=== PATIENT | female | born 2000 | race Caucasian/White ===

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

== ENCOUNTER 2019-01-15 08:24 | Emergency (ER) | payer MEDICAID ==
[2019-01-15 09:01] LABS: BASOPHILS % (AUTO) 0.7 %; EOSINOPHILS # (AUTO) 0.1 10^3/uL (0.0-0.7); EOSINOPHILS % (AUTO) 2.1 %; LYMPHOCYTES # (AUTO) 1.4 10^3/uL (1.5-3.5); LYMPHOCYTES % (AUTO) 22.3 %; MEAN CORPUSCULAR HGB CONC 31.5 g/dL (32.0-36.0); MEAN PLATELET VOLUME 9.3 fL (7.9-10.8); MONOCYTES # (AUTO) 0.4 10^3/uL (0.0-1.0); MONOCYTES % (AUTO) 6.9 %; NEUTROPHILS # (AUTO) 4.2 10^3/uL (1.5-6.6); NEUTROPHILS % (AUTO) 67.8 %; PLT - PLATELET COUNT 312 10^3/uL (130-450); RED BLOOD COUNT 4.64 10^6/uL (4.20-5.40); RED CELL DISTRIBUTION WIDTH 16.3 % (12.0-15.0); WHITE BLOOD COUNT 6.1 x10^3/uL (4.8-10.8)
[2019-01-15 09:24] LABS: ALBUMIN 4.6 g/dL (3.2-5.5); ALBUMIN/GLOBULIN RATIO 1.3 (1.0-2.2); BILIRUBIN,TOTAL 0.8 mg/dL (0.2-1.0); CALCIUM 9.5 mg/dL (8.5-10.3); CREATININE 0.6 mg/dL (0.4-1.0); TOTAL PROTEIN 8.1 g/dL (6.7-8.2)
[2019-01-15 10:06] LABS: BILIRUBIN,URINE NEGATIVE (NEGATIVE); GLUCOSE, URINE (UA) NEGATIVE (NEGATIVE); KETONES,URINE (UA) NEGATIVE (NEGATIVE); LEUKOCYTE ESTERASE, URINE SMALL (NEGATIVE); NITRITE,URINE NEGATIVE (NEGATIVE); OCCULT BLOOD,URINE MODERATE (NEGATIVE); PH,URINE 7.5 PH (5.0-7.5); PROTEIN,URINE 100 mg/dL (NEGATIVE); UROBILINOGEN,URINE 0.2 (NORMAL) E.U./dL (NORMAL)
[2019-01-15 10:07] LABS: CLARITY,URINE SL. CLOUDY (CLEAR)
[2019-01-15 10:08] LABS: HCG UR QUAL NEGATIVE
[2019-01-15 10:11] LABS: BACTERIA,URINE Moderate /HPF (None Seen); SQUAMOUS EPITHELIAL CELL,UR MOD Squamous (<= Few)
--- NOTE | 2019-01-15 11:08 | ED Physician Documentation ---
PD HPI FEMALE - Stated complaint Stated Complaint: ABD PX - Chief complaint Chief Complaint: Abd Pain - History obtained from History obtained from: Patient - History of Present Illness Timing - onset: How many days ago (2) Timing - duration: Days (2) Timing - details: Gradual onset, Still present Associated symptoms: Back pain, Pelvic pain, Dysuria, Urinary frequency Contributing factors: No: Similar symptoms before: Has not had sx before Recently seen: Not recently seen - Additional information Additional information: Previously well 18-year-old female has developed some lower abdomen cramping and pain as well as some urinary urgency and frequency. She has not developed fever she has not developed nausea she been able to eat. Review of Systems Constitutional: denies: Fever Eyes: denies: Decreased vision Ears: denies: Ear pain Nose: denies: Rhinorrhea / runny nose, Congestion Throat: denies: Sore throat Cardiac: denies: Chest pain / pressure, Palpitations Respiratory: denies: Dyspnea, Cough GI: reports: Abdominal Pain. denies: Nausea, Vomiting, Constipation, Diarrhea : reports: Dysuria, Frequency. denies: Discharge Skin: denies: Rash Musculoskeletal: reports: Back pain. denies: Neck pain, Extremity pain Neurologic: denies: Generalized weakness, Focal weakness, Numbness PD PAST MEDICAL HISTORY - Past Surgical History Ortho: Other (foot surgery) - Present Medications Home Medications: Ambulatory Orders Medication Instructions Recorded Confirmed Sulfamethox/Trimeth 800/160 1 each PO BID #10 tablet 01/15/19 [Bactrim Ds] - Allergies Allergies/Adverse Reactions: Allergies Allergy/AdvReac Type Severity Reaction Status Date / Time No Known Drug Allergies Allergy Verified 01/15/19 08:41 - Social History Smoking Status: Never smoker PD ED PE NORMAL - Vitals Vital signs reviewed: Yes (normal ) - General General: Alert and oriented X 3, No acute distress, Well developed/nourished - HEENT HEENT: Atraumatic, PERRL, EOMI - Neck Neck: Supple, no meningeal sign - Cardiac Cardiac: RRR, No murmur - Respiratory Respiratory: No respiratory distress, Clear bilaterally - Abdomen Abdomen: Soft, Other (There is migratory tenderness to the upper and lower abdomen. There is right upper quadrant tendernes as well a suprapubic tenderness and right lower quadrant tenderness that is not reproducible. 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, No motor deficit, No sensory deficit, Normal speech Eye Opening: Spontaneous Motor: Obeys Commands Verbal: Oriented GCS Score: 15 - Psych Psych: Normal mood, Normal affect Results - Vitals Vitals: Vital Signs - 24 hr 01/15/19 08:39 Temperature 36.8 C Heart Rate 70 Respiratory 14 Rate Blood Pressure 129/76 O2 Saturation 100 Oxygen O2 Source Room air - Labs Labs: Laboratory Tests 01/15/19 01/15/19 01/15/19 08:50 08:50 09:50 WBC 6.1 RBC 4.64 Hgb 13.0 Hct 41.3 MCV 89.0 MCH 28.0 MCHC 31.5 L RDW 16.3 H Plt Count 312 MPV 9.3 Neut # (Auto) 4.2 Lymph # (Auto) 1.4 L [place] # (Auto) 0.4 Eos # (Auto) 0.1 Baso # (Auto) 0.0 Absolute Nucleated RBC 0.00 Nucleated RBC % 0.0 Sodium 140 Potassium 4.4 Chloride 105 Carbon Dioxide 26 Anion Gap 9.0 BUN 17 Creatinine 0.6 Estimated GFR (MDRD) 129 Glucose 110 H Calcium 9.5 Total Bilirubin 0.8 AST 17 ALT 19 Alkaline Phosphatase 43 Total Protein 8.1 Albumin 4.6 Globulin 3.5 Albumin/Globulin Ratio 1.3 Lipase 29 Urine Color YELLOW Urine Clarity SL. CLOUDY Urine pH 7.5 Ur Specific [place] 1.020 Urine Protein 100 H Urine Glucose (UA) NEGATIVE Urine Ketones NEGATIVE Urine Occult Blood MODERATE H Urine Nitrite NEGATIVE Urine Bilirubin NEGATIVE Urine Urobilinogen 0.2 (NORMAL) Ur Leukocyte Esterase SMALL H Urine RBC 11-25 H Urine WBC 11-25 H Ur Squamous Epith Cells MOD Squamous H Urine Bacteria Moderate H Ur Microscopic Review INDICATED Urine Culture Comments NOT INDICATED Urine HCG, Qual 01/15/19 09:50 WBC RBC Hgb Hct MCV MCH MCHC RDW Plt Count MPV Neut # (Auto) Lymph # (Auto) [place] # (Auto) Eos # (Auto) Baso # (Auto) Absolute Nucleated RBC Nucleated RBC % Sodium Potassium Chloride Carbon Dioxide Anion Gap BUN Creatinine Estimated GFR (MDRD) Glucose Calcium Total Bilirubin AST ALT Alkaline Phosphatase Total Protein Albumin Globulin Albumin/Globulin Ratio Lipase Urine Color Urine Clarity Urine pH Ur Specific [place] 1.020 Urine Protein Urine Glucose (UA) Urine Ketones Urine Occult Blood Urine Nitrite Urine Bilirubin Urine Urobilinogen Ur Leukocyte Esterase Urine RBC Urine WBC Ur Squamous Epith Cells Urine Bacteria Ur Microscopic Review Urine Culture Comments Urine HCG, Qual NEGATIVE PD MEDICAL DECISION MAKING - ED course Complexity details: reviewed results, re-evaluated patient, considered differential, d/w patient ED course: 18-year-old female with lower pelvic pain appears to have urinary tract infection. Departure - Departure Disposition: 01 Home, Self Care Clinical Impression: Urinary tract infection Qualifiers: Urinary tract infection type: acute cystitis Hematuria presence: with hematuria Qualified Code(s): N30.01 - Acute cystitis with hematuria Condition: Stable Instructions: ED UTI Cystitis Female Follow-Up: [facility] [Provider Group] Prescriptions: Sulfamethox/Trimeth 800/160 [Bactrim Ds] 1 each PO BID #10 tablet
[2019-01-15 11:30] VITALS: BP 113/81
== END 2019-01-15 11:29 | disposition home or self-care (01) ==
LOC: ED 08:24
DX: N30.01 Acute cystitis with hematuria (principal)
CPT/HCPCS: 36415; 80053; 81001; 81003; 81025; 83690; 85025; 87086; 99283; 99284

== ENCOUNTER 2019-10-31 08:26 | Outpatient (CLI) | payer MEDICAID | END 2019-10-31 23:59 | disposition home or self-care (01) | LOC: LAB.R 08:26 | PROVIDERS: ATTEND Obstetrics & Gynecology | DX: R30.0 Dysuria (principal) | CPT/HCPCS: 87086 ==

== ENCOUNTER 2020-01-17 07:00 | Outpatient (CLI) | payer MEDICAID ==
[2020-01-17 22:56] LABS: CANDIDA GROUP DNA NEGATIVE (NEGATIVE); CANDIDA KRUSEI DNA NEGATIVE (NEGATIVE); TRICHOMONAS VAGINALIS DNA NEGATIVE (NEGATIVE)
== END 2020-01-17 23:59 | disposition home or self-care (01) ==
LOC: LAB.R 07:00
PROVIDERS: ATTEND Advanced Practice Midwife
DX: N39.0 Urinary tract infection, site not specified (principal); R10.2 Pelvic and perineal pain
CPT/HCPCS: 87086; 87661; 87801

== ENCOUNTER 2020-02-19 12:30 | Outpatient (CLI) | payer MEDICAID ==
[2020-02-19 20:03] LABS: RAPID STREP SCREEN Negative (Negative)
== END 2020-02-19 23:59 | disposition home or self-care (01) ==
LOC: LAB.R 12:30
PROVIDERS: ATTEND Nurse Practitioner
DX: R05 Cough (principal); Z20.828 Contact with and (suspected) exposure to other viral communicable diseases
CPT/HCPCS: 87070; 87275; 87276; 87430

== ENCOUNTER 2021-06-12 08:00 | Outpatient (CLI) | payer MEDICAID ==
[2021-06-12 17:25] LABS: BILIRUBIN,URINE NEGATIVE (NEGATIVE); GLUCOSE, URINE (UA) NEGATIVE (NEGATIVE); KETONES,URINE (UA) NEGATIVE (NEGATIVE); LEUKOCYTE ESTERASE, URINE TRACE (NEGATIVE); NITRITE,URINE NEGATIVE (NEGATIVE); OCCULT BLOOD,URINE SMALL (NEGATIVE); PROTEIN,URINE NEGATIVE (NEGATIVE); UROBILINOGEN,URINE 0.2 (NORMAL) E.U./dL (NORMAL)
[2021-06-12 17:28] LABS: CLARITY,URINE SL. CLOUDY (CLEAR)
[2021-06-12 17:40] LABS: BACTERIA,URINE Moderate /HPF (None Seen); RBC,URINE 0-5 /HPF (0-5); SQUAMOUS EPITHELIAL CELL,UR MOD Squamous (<= Few)
[2021-06-12 17:41] LABS: MUCUS,URINE Few Strands
[2021-06-12 21:52] LABS: BACTERIAL VAGINOSIS DNA NEGATIVE (NEGATIVE); CANDIDA GLABRATA DNA NEGATIVE (NEGATIVE); CANDIDA GROUP DNA NEGATIVE (NEGATIVE); CANDIDA KRUSEI DNA NEGATIVE (NEGATIVE); TRICHOMONAS VAGINALIS DNA NEGATIVE (NEGATIVE)
[2021-06-12 22:32] LABS: CHLAMYDIA TRACHOMATIS DNA NEGATIVE (NEGATIVE); NEISSERIA GONORRHOEAE DNA NEGATIVE (NEGATIVE); TRICHOMONAS VAGINALIS DNA NEGATIVE (NEGATIVE)
== END 2021-06-12 23:59 | disposition home or self-care (01) ==
LOC: LAB.WC 08:00
PROVIDERS: ATTEND Obstetrics & Gynecology
DX: R30.0 Dysuria (principal); N89.8 Other specified noninflammatory disorders of vagina
CPT/HCPCS: 81001; 87086; 87491; 87591; 87661; 87801

== ENCOUNTER 2021-06-16 08:00 | Outpatient (CLI) | payer MEDICAID | END 2021-06-16 23:59 | LOC: LAB.WC 08:00 | PROVIDERS: ATTEND Obstetrics & Gynecology | DX: R30.0 Dysuria (principal) | CPT/HCPCS: 87086; 87181 ==

== ENCOUNTER 2021-06-26 08:00 | Outpatient (CLI) | payer MEDICAID ==
[2021-06-26 19:36] LABS: BACTERIAL VAGINOSIS DNA NEGATIVE (NEGATIVE); CANDIDA GLABRATA DNA NEGATIVE (NEGATIVE); CANDIDA GROUP DNA POSITIVE (NEGATIVE); CANDIDA KRUSEI DNA NEGATIVE (NEGATIVE); TRICHOMONAS VAGINALIS DNA NEGATIVE (NEGATIVE)
== END 2021-06-26 23:59 | disposition home or self-care (01) ==
LOC: LAB 08:00
PROVIDERS: ATTEND Obstetrics & Gynecology
DX: L29.8 Other pruritus (principal); B96.20 Unspecified Escherichia coli [E. coli] as the cause of diseases classified elsewhere
CPT/HCPCS: 81514; 87086

== ENCOUNTER 2021-09-13 14:56 | Emergency (ER) | payer MEDICAID ==
[2021-09-13 15:04] VITALS: BP 122/72
[2021-09-13] MEDS ORDERED: BACITRACIN ZINC OINT 1 PACKET TOP STA (16:51)
--- NOTE | 2021-09-13 16:52 | ED Physician Documentation ---
History of Present Illness - Stated complaint Stated Complaint: LT PINKY NAIL INJ - Chief complaint Chief Complaint: Wound - Additonal information Additional information: 21-year-old female presents emergency department for evaluation of acute left nailbed injury. She wears acrylic nails on top of her [place] nail. Yesterday the acrylic got pulled and it lifted the [place] nail away from the nailbed. She and her friend used superglue to Replace the nail back on the bed but now the finger is swollen has mucopurulent drainage and is increasingly painful. Review of Systems Constitutional: denies: Fever, Chills Throat: reports: Reviewed and negative Cardiac: reports: Reviewed and negative Respiratory: reports: Reviewed and negative GI: reports: Reviewed and negative : reports: Reviewed and negative Skin: reports: Reviewed and negative Musculoskeletal: reports: Reviewed and negative PD PAST MEDICAL HISTORY - Past Surgical History Ortho: Other (foot surgery) - Present Medications Home Medications: Ambulatory Orders Medication Instructions Recorded Confirmed Sulfamethox/Trimeth 800/160 1 each PO BID #10 tablet 01/15/19 [Bactrim Ds] cephALEXin [Keflex] 500 mg PO Q6H #28 cap 09/13/21 - Allergies Allergies/Adverse Reactions: Allergies Allergy/AdvReac Type Severity Reaction Status Date / Time No Known Drug Allergies Allergy Verified 09/13/21 15:05 - Social History Smoking Status: Never smoker PD ED PE EXPANDED - Extremities Extremities: Left finger(s) (Left small finger with swelling ecchymosis induration at the distal tip and fat pad. Large amount of mucopurulent drainage from under the [place] nailbed) Results - Vitals Vitals: Vital Signs - 24 hr 09/13/21 15:00 Temperature 36.1 C L Heart Rate 83 Respiratory 16 Rate Blood Pressure 122/72 O2 Saturation 100 Oxygen O2 Source Room air Procedures - General procedure General procedure: Left small finger was anesthetized with 1% lidocaine using a digital block. Once anesthesia was appropriately achieved. Using a nail elevator we were able to remove the acrylic nail. The [place] nail appears adherent to the Nailbed. Moderate amount of mucopurulent drainage received PD MEDICAL DECISION MAKING - ED course Complexity details: considered differential, d/w patient ED course: 21-year-old female presents emergency department with a left small distal finger infection after an acrylic nail bed was ripped away from the [place] nail and it was glued down while rafting. She now has mucopurulent drainage. I did achieve a digital block of this digit and using a nail elevator is able to remove the acrylic nail from the [place] bed. Moderate amount of mucopurulent drainage came. She will placed on Keflex. Warm compress as well as salt water soaks advised. Emergent return precautions discussed. Her tetanus is up-to-d ate Departure - Departure Disposition: 01 Home, Self Care Clinical Impression: Nail avulsion Cellulitis, finger Qualifiers: Laterality: left Qualified Code(s): L03.012 - Cellulitis of left finger Condition: Stable Record reviewed to determine appropriate education?: Yes Prescriptions: cephALEXin [Keflex] 500 mg PO Q6H #28 cap Comments: Samira you sustained what is called a nail avulsion which is where a portion of the nail lifted from the nail bed. You do have an infection of the finger called cellulitis. We did remove the acrylic nail and your [place] nail seems adherent to the nailbed at this time. I would like you to soak your finger in warm Epson salt once daily and then apply antibiotic ointment to your nailbed and a simple bandage. Fill the prescription for the antibiotics and take as directed. I will expect that this is markedly improving over the next 4 to 6 days. If her symptoms or not improving, you develop fevers, have significant swelling then please return to the ER for second evaluation
[2021-09-13] MEDS ORDERED: cephALEXin 250 MG CAPSULE PO STA (17:34)
== END 2021-09-13 17:43 | disposition home or self-care (01) ==
LOC: ED 14:56
DX: S61.307A Unspecified open wound of left little finger with damage to nail, initial encounter (principal); X58.XXXA Exposure to other specified factors, initial encounter
CPT/HCPCS: 64450; 99282; A9270

== ENCOUNTER 2021-12-30 11:22 | Emergency (ER) | payer MEDICAID ==
[2021-12-30 11:33] VITALS: BP 126/71
--- OUTSIDE RECORDS SUMMARY | 2021-12-30 11:41 | EXTERNAL MEDICAL SUMMARY RPT | Continuity of Care Document ---
:2000 Author Organization [facility] Address [address] [place] [address] Phone Allergies and Intolerances date description facility type (no date) No Known Drug Allergies [facility] (unkn own) Encounters No information. Functional Status No information. Immunizations No information. Medications No information. Problems No information. Procedures No information. Results/Labs test date author facility value unit interpret ation Result panel 1 (unknown) (no (unknown) (unknown) (no value) (units (unk nown) date) unknown) (unknown) (no (unknown) (unknown) Date of Service: (units (unknown) date) 10/28/21 unknown) (unknown) (no (unknown) (unknown) (no value) (units (unk nown) date) unknown) (unknown) (no (unknown) (unknown) Allergies (units (unkn own) date) unknown) (unknown) (no (unknown) (unknown) Emergency Report (units (unknown) date) unknown) (unknown) (no (unknown) (unknown) [facility] (units (unknown) date) [address] [place] [address] unknown) [place] [address] (unknown) (no (unknown) (unknown) Vital Signs - 8 (units (unknown) date) hr unknown) (unknown) (no (unknown) (unknown) (no value) (units (unk nown) date) unknown) (unknown) (no (unknown) (unknown) 10/28/21 (units (unkno wn) date) unknown) (unknown) (no (unknown) (unknown) [id number] (units (unkno wn) date) unknown) (unknown) (no (unknown) (unknown) 09:08 (units (unkno wn) date) unknown) (unknown) (no (unknown) (unknown) Age/Sex: 21 / F (units (unknown) date) unknown) (unknown) (no (unknown) (unknown) Allergy/AdvReac (units (unknown) date) Type Severity unknown) Reaction Status Date / Time (unknown) (no (unknown) (unknown) Blood Pressure (units (unknown) date) 144/89 H 10/28/21 unknown) 09:08 (unknown) (no (unknown) (unknown) Blood Pressure (units (unknown) date) 144/89 H unknown) (unknown) (no (unknown) (unknown) Chief complaint: (units (unknown) date) Urogenital-Female unknown) (unknown) (no (unknown) (unknown) Course (units (unkno wn) date) unknown) (unknown) (no (unknown) (unknown) : 2000 (units (unknown) date) Acct:[id number] unknown) (unknown) (no (unknown) (unknown) Departure (units (unkn own) date) unknown) (unknown) (no (unknown) (unknown) Discharge Plan (units (unknown) date) unknown) (unknown) (no (unknown) (unknown) ER Physician: (units ( unknown) date) Keiry Candelaria unknown) D.O. (unknown) (no (unknown) (unknown) Exam (units (unkno wn) date) unknown) (unknown) (no (unknown) (unknown) General (units (unkno wn) date) unknown) (unknown) (no (unknown) (unknown) HPI - Female (units (u nknown) date) Genitourinary unknown) (unknown) (no (unknown) (unknown) Initial Vital (units ( unknown) date) Signs unknown) (unknown) (no (unknown) (unknown) Initial Vital (units ( unknown) date) Signs: unknown) (unknown) (no (unknown) (unknown) Mode of arrival: (units (unknown) date) Wheelchair unknown) (unknown) (no (unknown) (unknown) No Known Drug (units ( unknown) date) Allergies Allergy unknown) Verified 10/28/21 09:14 (unknown) (no (unknown) (unknown) Oxygen Delivery (units (unknown) date) Method 10/28/21 unknown) 09:08 (unknown) (no (unknown) (unknown) Oxygen Delivery (units (unknown) date) Method Room Air unknown) (unknown) (no (unknown) (unknown) Patient History (units (unknown) date) unknown) (unknown) (no (unknown) (unknown) Patient: (units (unkno wn) date) Samira Velázquez unknown) MR#: [id number] (unknown) (no (unknown) (unknown) Pulse Oximetry (units (unknown) date) 100 10/28/21 unknown) 09:08 (unknown) (no (unknown) (unknown) Pulse Oximetry (units (unknown) date) 100 unknown) (unknown) (no (unknown) (unknown) Pulse Rate 78 (units ( unknown) date) 10/28/21 09:08 unknown) (unknown) (no (unknown) (unknown) Pulse Rate 78 (units ( unknown) date) unknown) (unknown) (no (unknown) (unknown) Referrals: (units (unk nown) date) unknown) (unknown) (no (unknown) (unknown) Related Data (units (u nknown) date) unknown) (unknown) (no (unknown) (unknown) Respiratory Rate (units (unknown) date) 16 10/28/21 09:08 unknown) (unknown) (no (unknown) (unknown) Respiratory Rate (units (unknown) date) 16 unknown) (unknown) (no (unknown) (unknown) Signed By: (units (unk nown) date) unknown) (unknown) (no (unknown) (unknown) Source: patient (units (unknown) date) unknown) (unknown) (no (unknown) (unknown) Stated (units (unkno wn) date) complaint: blood unknown) in urine backs on fire hurts on rt side (unknown) (no (unknown) (unknown) Substance Use (units ( unknown) date) Type: does not unknown) use (unknown) (no (unknown) (unknown) Temperature 97.9 (units (unknown) date) F 10/28/21 09:08 unknown) (unknown) (no (unknown) (unknown) Temperature 97.9 (units (unknown) date) F unknown) (unknown) (no (unknown) (unknown) Kristian Pabon (units (unknown) date) MD Samira [Primary unknown) Care Provider] - (unknown) (no (unknown) (unknown) Time Seen by (units (u nknown) date) Provider: unknown) 10/28/21 09:29 (unknown) (no (unknown) (unknown) Vital Signs (units (un known) date) unknown) (unknown) (no (unknown) (unknown) Vital signs: (units (u nknown) date) unknown) (unknown) (no (unknown) (unknown) alcohol intake (units (unknown) date) frequency: unknown) holidays/special occasions only (unknown) (no (unknown) (unknown) tobacco type: (units ( unknown) date) vaping unknown) Result panel 2 (unknown) (no date) (unknown) (unknown) 10-30/HPF (units (unk nown) unknown) (unknown) (no date) (unknown) (unknown) 30-100/HPF (units (un known) unknown) (unknown) (no date) (unknown) (unknown) 5-10 /HPF (units (unk nown) unknown) (unknown) (no date) (unknown) (unknown) Moderate (units (unkn own) (10-30) unknown) (unknown) (no date) (unknown) (unknown) Specimen (units (unkn own) Cultured unknown) Result panel 3 (unknown) (no (unknown) (unknown) (no value) (units (unk nown) date) unknown) (unknown) (no (unknown) (unknown) (no value) (units (unk nown) date) unknown) (unknown) (no (unknown) (unknown) Date of Service: (units (unknown) date) 10/28/21 unknown) (unknown) (no (unknown) (unknown) (no value) (units (unk nown) date) unknown) (unknown) (no (unknown) (unknown) 1 tab PO Q12H Qty: (units (unknown) date) 20 0RF unknown) (unknown) (no (unknown) (unknown) Allergies (units (unkn own) date) unknown) (unknown) (no (unknown) (unknown) ED Orders (units (unkn own) date) unknown) (unknown) (no (unknown) (unknown) Emergency Report (units (unknown) date) unknown) (unknown) (no (unknown) (unknown) [facility] (units (unknown) date) [address] unknown) [place] [address] (unknown) (no (unknown) (unknown) Lab Results (units (un known) date) unknown) (unknown) (no (unknown) (unknown) Point of Care (units ( unknown) date) Testing unknown) (unknown) (no (unknown) (unknown) Previous Rx's (units ( unknown) date) unknown) (unknown) (no (unknown) (unknown) Stop: 10/28/21 (units (unknown) date) 10:10 unknown) (unknown) (no (unknown) (unknown) Urine Dip (units (unkn own) date) unknown) (unknown) (no (unknown) (unknown) Vital Signs - 8 hr (units (unknown) date) unknown) (unknown) (no (unknown) (unknown) (no value) (units (unk nown) date) unknown) (unknown) (no (unknown) (unknown) 10/28/21 (units (unkno wn) date) Range/Units unknown) (unknown) (no (unknown) (unknown) 09:34 (units (unkno wn) date) unknown) (unknown) (no (unknown) (unknown) sulfamethoxazole-t (units (unknown) date) rimethoprim unknown) [Bactrim DS] 800-160 mg tablet (unknown) (no (unknown) (unknown) 10/28/21 (units (unkno wn) date) unknown) (unknown) (no (unknown) (unknown) Medication (units (unk nown) date) Instructions unknown) Recorded (unknown) (no (unknown) (unknown) Pyelonephritis (units (unknown) date) unknown) (unknown) (no (unknown) (unknown) (Bactrim DS) (units (u nknown) date) unknown) (unknown) (no (unknown) (unknown) [id number] (units (unkno wn) date) unknown) (unknown) (no (unknown) (unknown) 10/28/21 09:34 (units (unknown) date) unknown) (unknown) (no (unknown) (unknown) 09:08 (units (unkno wn) date) unknown) (unknown) (no (unknown) (unknown) ABDOMEN: Soft, (units (unknown) date) nontender. unknown) Normoactive bowel sounds all 4 quadrants. No (unknown) (no (unknown) (unknown) Acetaminophen (units ( unknown) date) (Acetaminophen 325 unknown) Mg Tablet) 975 mg PO NOW ONE (unknown) (no (unknown) (unknown) Activity (units (unkno wn) date) Restrictions/Additi unknown) onal Instructions: (unknown) (no (unknown) (unknown) Age/Sex: 21 / F (units (unknown) date) unknown) (unknown) (no (unknown) (unknown) Allergy/AdvReac (units (unknown) date) Type Severity unknown) Reaction Status Date / Time (unknown) (no (unknown) (unknown) Bedside Urine (units ( unknown) date) Bilirubin - unknown) Negative (unknown) (no (unknown) (unknown) Bedside Urine (units ( unknown) date) Glucose Negative unknown) (unknown) (no (unknown) (unknown) Bedside Urine (units ( unknown) date) Ketone - Negative unknown) (unknown) (no (unknown) (unknown) Bedside Urine (units ( unknown) date) Leukocytes - unknown) Negative (unknown) (no (unknown) (unknown) Bedside Urine (units ( unknown) date) Nitrite - Negative unknown) (unknown) (no (unknown) (unknown) Bedside Urine (units ( unknown) date) Occult Blood +++ unknown) (unknown) (no (unknown) (unknown) Bedside Urine (units ( unknown) date) Protein ++ 100 unknown) (unknown) (no (unknown) (unknown) Bedside Urine (units ( unknown) date) Urobilinogen - unknown) Negative (unknown) (no (unknown) (unknown) Bedside Urine pH (units (unknown) date) 8.5 unknown) (unknown) (no (unknown) (unknown) Blood Pressure (units (unknown) date) 144/89 H 10/28/21 unknown) 09:08 (unknown) (no (unknown) (unknown) Blood Pressure (units (unknown) date) 144/89 H unknown) (unknown) (no (unknown) (unknown) CARDIOVASCULAR: (units (unknown) date) Regular rate and unknown) rhythm without murmurs, rubs or gallops. (unknown) (no (unknown) (unknown) Chief complaint: (units (unknown) date) Urogenital-Female unknown) (unknown) (no (unknown) (unknown) Clinical (units (unkno wn) date) Impression: unknown) (unknown) (no (unknown) (unknown) Course (units (unkno wn) date) unknown) (unknown) (no (unknown) (unknown) : 2000 (units (unknown) date) Acct:[id number] unknown) (unknown) (no (unknown) (unknown) Departure (units (unkn own) date) unknown) (unknown) (no (unknown) (unknown) Discharge Plan (units (unknown) date) unknown) (unknown) (no (unknown) (unknown) ER Physician: (units ( unknown) date) Keiry Candelaria D.O. unknown) (unknown) (no (unknown) (unknown) EXTREMITIES: (units (u nknown) date) Normal range of unknown) motion, no clubbing or edema. Neurovascularly (unknown) (no (unknown) (unknown) Esterase (units (unkno wn) date) unknown) (unknown) (no (unknown) (unknown) Exam (units (unkno wn) date) unknown) (unknown) (no (unknown) (unknown) Exam Narrative: (units (unknown) date) unknown) (unknown) (no (unknown) (unknown) GENERAL: Alert and (units (unknown) date) oriented x three, unknown) female in vfhr-wi-kbrepbew distress. (unknown) (no (unknown) (unknown) : Right CVA (units ( unknown) date) tenderness unknown) (unknown) (no (unknown) (unknown) General (units (unkno wn) date) unknown) (unknown) (no (unknown) (unknown) HEENT: Head (units (un known) date) normocephalic, unknown) atraumatic, EOMI, pupils reactive, face symmetric, (unknown) (no (unknown) (unknown) HPI - Female (units (u nknown) date) Genitourinary unknown) (unknown) (no (unknown) (unknown) HPI Narrative: (units (unknown) date) unknown) (unknown) (no (unknown) (unknown) History of Present (units (unknown) date) Illness unknown) (unknown) (no (unknown) (unknown) Initial Vital (units ( unknown) date) Signs unknown) (unknown) (no (unknown) (unknown) Initial Vital (units ( unknown) date) Signs: unknown) (unknown) (no (unknown) (unknown) Instructions: DI (units (unknown) date) for Kidney unknown) Infection (unknown) (no (unknown) (unknown) Lab Data (units (unkno wn) date) unknown) (unknown) (no (unknown) (unknown) Labs: (units (unkno wn) date) unknown) (unknown) (no (unknown) (unknown) Limitations: no (units (unknown) date) limitations unknown) (unknown) (no (unknown) (unknown) MDM - Female (units (u nknown) date) Genitourinary unknown) (unknown) (no (unknown) (unknown) MDM Narrative (units ( unknown) date) unknown) (unknown) (no (unknown) (unknown) Medical decision (units (unknown) date) making narrative: unknown) (unknown) (no (unknown) (unknown) Mode of arrival: (units (unknown) date) Wheelchair unknown) (unknown) (no (unknown) (unknown) NECK: Supple, full (units (unknown) date) range of motion unknown) (unknown) (no (unknown) (unknown) NEUROLOGICAL: (units ( unknown) date) Cranial nerves II unknown) through XII grossly intact. Moving all (unknown) (no (unknown) (unknown) Narrative (units (unkn own) date) unknown) (unknown) (no (unknown) (unknown) New (units (unkno wn) date) unknown) (unknown) (no (unknown) (unknown) No Known Drug (units ( unknown) date) Allergies Allergy unknown) Verified 10/28/21 09:14 (unknown) (no (unknown) (unknown) ONE (units (unkno wn) date) unknown) (unknown) (no (unknown) (unknown) Ondansetron HCl (units (unknown) date) (Ondansetron 4 Mg unknown) Odt) 4 mg SL NOW ONE (unknown) (no (unknown) (unknown) Ordered: (units (unkno wn) date) unknown) (unknown) (no (unknown) (unknown) Orders (units (unkno wn) date) unknown) (unknown) (no (unknown) (unknown) Oxygen Delivery (units (unknown) date) Method 10/28/21 unknown) 09:08 (unknown) (no (unknown) (unknown) Oxygen Delivery (units (unknown) date) Method Room Air unknown) (unknown) (no (unknown) (unknown) Patient (units (unkno wn) date) Disposition: Home unknown) (unknown) (no (unknown) (unknown) Patient History (units (unknown) date) unknown) (unknown) (no (unknown) (unknown) Patient denies any (units (unknown) date) vomiting but has unknown) felt nauseated this morning. No fevers or (unknown) (no (unknown) (unknown) Patient: (units (unkno wn) date) Samira Velázquez M unknown) MR#: [id number] (unknown) (no (unknown) (unknown) Please return if (units (unknown) date) you develop fevers, unknown) rapidly worsening symptoms, persistent (unknown) (no (unknown) (unknown) Test (units (unknown) date) Results Negative unknown) (unknown) (no (unknown) (unknown) Prescription sent (units (unknown) date) to [facility] in unknown) [place]. (unknown) (no (unknown) (unknown) Prescriptions: (units (unknown) date) unknown) (unknown) (no (unknown) (unknown) Pulse Oximetry 100 (units (unknown) date) 10/28/21 09:08 unknown) (unknown) (no (unknown) (unknown) Pulse Oximetry 100 (units (unknown) date) unknown) (unknown) (no (unknown) (unknown) Pulse Rate 78 (units ( unknown) date) 10/28/21 09:08 unknown) (unknown) (no (unknown) (unknown) Pulse Rate 78 (units ( unknown) date) unknown) (unknown) (no (unknown) (unknown) RESPIRATORY: (units (u nknown) date) Breath sounds equal unknown) bilaterally, no wheezes rales or rhonchi. (unknown) (no (unknown) (unknown) ROS Unobtainable: (units (unknown) date) All systems unknown) reviewed + are unremarkable except as noted in HPI (unknown) (no (unknown) (unknown) Referrals: (units (unk nown) date) unknown) (unknown) (no (unknown) (unknown) Related Data (units (u nknown) date) unknown) (unknown) (no (unknown) (unknown) Respiratory Rate (units (unknown) date) 16 10/28/21 09:08 unknown) (unknown) (no (unknown) (unknown) Respiratory Rate (units (unknown) date) 16 unknown) (unknown) (no (unknown) (unknown) Review of Systems (units (unknown) date) unknown) (unknown) (no (unknown) (unknown) SKIN: Warm, dry, (units (unknown) date) no petechiae, no unknown) rashes or lesions. (unknown) (no (unknown) (unknown) She smokes tobacco (units (unknown) date) vapes, occasional unknown) alcohol, no illicit. She is accompanied by (unknown) (no (unknown) (unknown) Signed By: (units (unk nown) date) unknown) (unknown) (no (unknown) (unknown) Source: patient (units (unknown) date) unknown) (unknown) (no (unknown) (unknown) Stated complaint: (units (unknown) date) blood in urine unknown) backs on fire hurts on rt side (unknown) (no (unknown) (unknown) Substance Use (units ( unknown) date) Type: does not use unknown) (unknown) (no (unknown) (unknown) Take antibiotics (units (unknown) date) until completely unknown) gone. Take your 2nd dose this evening. (unknown) (no (unknown) (unknown) Temperature 97.9 F (units (unknown) date) 10/28/21 09:08 unknown) (unknown) (no (unknown) (unknown) Temperature 97.9 F (units (unknown) date) unknown) (unknown) (no (unknown) (unknown) This is a (units (unkn own) date) 21-year-old healthy unknown) female with no known medical issues. Patient (unknown) (no (unknown) (unknown) This is a healthy (units (unknown) date) 21-year-old female unknown) with dysuria, urgency and frequency, right (unknown) (no (unknown) (unknown) This typically (units (unknown) date) improves with unknown) antibiotics over the next couple days and you (unknown) (no (unknown) (unknown) Kristian Pabon, (units (unknown) date) [Primary Care unknown) Provider] - (unknown) (no (unknown) (unknown) Time Seen by (units (u nknown) date) Provider: 10/28/21 unknown) 09:29 (unknown) (no (unknown) (unknown) Trimethoprim/Sulfa (units (unknown) date) methoxazole unknown) (Trimeth/Sulfa 160/800 (Ds) Tablet) 1 tab PO NOW (unknown) (no (unknown) (unknown) Ur Culture (units (unk nown) date) Indicated? Specimen unknown) cultured (unknown) (no (unknown) (unknown) Ur Squamous Epith (units (unknown) date) Cells 5-10 /hpf H unknown) (0-5/HPF) (unknown) (no (unknown) (unknown) Urine Bacteria (units (unknown) date) Moderate (10-30) H unknown) (None) (unknown) (no (unknown) (unknown) Urine Culture Stat (units (unknown) date) unknown) (unknown) (no (unknown) (unknown) Urine Microscopic (units (unknown) date) Stat unknown) (unknown) (no (unknown) (unknown) Urine RBC (units (unkn own) date) 30-100/hpf H unknown) (0-5/HPF) (unknown) (no (unknown) (unknown) Urine Specific (units (unknown) date) Rulo 1.01 unknown) (unknown) (no (unknown) (unknown) Urine WBC (units (unkn own) date) 10-30/hpf H unknown) (0-5/HPF) (unknown) (no (unknown) (unknown) Vital Signs (units (un known) date) unknown) (unknown) (no (unknown) (unknown) Vital signs: (units (u nknown) date) unknown) (unknown) (no (unknown) (unknown) You may take (units (un known) date) Tylenol up to a unknown) 1000 mg every 6 hours as needed and/or ibuprofen up (unknown) (no (unknown) (unknown) You may take (units (u nknown) date) Zofran 1 tablet unknown) every 6 hours as needed for nausea. (unknown) (no (unknown) (unknown) Your urine sample (units (unknown) date) reflects likely unknown) infection of your kidney which can occur when (unknown) (no (unknown) (unknown) Zofran for nausea (units (unknown) date) and 1st dose of unknown) oral antibiotic. (unknown) (no (unknown) (unknown) a bladder (units (unkn own) date) infection a sense unknown) up the ureter to the kidney. (unknown) (no (unknown) (unknown) alcohol intake (units (unknown) date) frequency: unknown) holidays/special occasions only (unknown) (no (unknown) (unknown) and below (units (unkn own) date) unknown) (unknown) (no (unknown) (unknown) appropriate to (units (unknown) date) start oral unknown) medication does not require further workup we did (unknown) (no (unknown) (unknown) breath in her (units (u nknown) date) flank. Patient unknown) states normal bowel movements, no vaginal bleeding (unknown) (no (unknown) (unknown) change or worsen (units (unknown) date) or other new or unknown) concerning symptoms. (unknown) (no (unknown) (unknown) chills. Denies any (units (unknown) date) chest pain. She unknown) states it is painful when she takes a deep (unknown) (no (unknown) (unknown) comes with concern (units (unknown) date) for possible UTI, unknown) patient states about 4:00 a.m. in the (unknown) (no (unknown) (unknown) discuss return (units (unknown) date) precautions or if unknown) she is not improving. Patient exam is (unknown) (no (unknown) (unknown) extremities (units (un known) date) unknown) (unknown) (no (unknown) (unknown) flank pain (units (unk nown) date) physical exam unknown) consistent with pyelonephritis. Patient's urine does (unknown) (no (unknown) (unknown) guarding or (units (un known) date) rebound, rigidity, unknown) no mass (unknown) (no (unknown) (unknown) her mother today. (units (unknown) date) unknown) (unknown) (no (unknown) (unknown) history my (units (unk nown) date) suspicion for unknown) kidney stone is significantly lower suspect more (unknown) (no (unknown) (unknown) intact (units (unkno wn) date) unknown) (unknown) (no (unknown) (unknown) lower abdominal (units (unknown) date) pain as well. She unknown) has had UTIs in the past she is never had (unknown) (no (unknown) (unknown) mg-trimethoprim (units (unknown) date) 160 mg tablet unknown) (unknown) (no (unknown) (unknown) moist mucous (units (u nknown) date) membranes unknown) (unknown) (no (unknown) (unknown) morning she woke (units (unknown) date) up with right flank unknown) pain that was sort of gradually worsening (unknown) (no (unknown) (unknown) not show nitrates, (units (unknown) date) does show RBCs as unknown) well as wbc's. Based on patient's clinical (unknown) (no (unknown) (unknown) over time, (units (unk nown) date) dysuria, urgency unknown) and frequency with a small amount of hematuria. (unknown) (no (unknown) (unknown) patient is not (units (unknown) date) vomiting but has unknown) been nauseated so gave her Tylenol for pain, (unknown) (no (unknown) (unknown) pyelonephritis. (units (unknown) date) She denies any unknown) daily prescription medications. No surgeries. (unknown) (no (unknown) (unknown) pyelonephritis. (units (unknown) date) She does not appear unknown) to be septic. At this time patient is (unknown) (no (unknown) (unknown) reassuring (units (unk nown) date) overall. Will give unknown) 1st dose of medications here in the department (unknown) (no (unknown) (unknown) should notice (units ( unknown) date) significant unknown) improvement over the next 24 hours. (unknown) (no (unknown) (unknown) sulfamethoxazole (units (unknown) date) 800 1 tab PO Q12H unknown) #20 tabs 10/28/21 (unknown) (no (unknown) (unknown) that she is (units (un known) date) appreciated, no unknown) vaginal discharge. Patient states she does have (unknown) (no (unknown) (unknown) to 600 mg every 6 (units (unknown) date) hours. unknown) (unknown) (no (unknown) (unknown) tobacco type: (units ( unknown) date) vaping unknown) (unknown) (no (unknown) (unknown) vomiting, passing (units (unknown) date) out, black or unknown) bloody stools, if your pain is continuing to Result panel 4 (unknown) (no (unknown) (unknown) (no value) (units (unk nown) date) unknown) (unknown) (no (unknown) (unknown) >100,000 CFU/ml (unkno wn) date) (unknown) (no (unknown) (unknown) <10,000 CFU/ml (unkno wn) date) (unknown) (no (unknown) (unknown) All (units (o wn) date) Beta-hemolytic unknown) Streptococcus organisms are considered (unknown) (no (unknown) (unknown) GenericComposite (units (unknown) date) [GPC^Gram unknown) positive cocci] (unknown) (no (unknown) (unknown) GenericComposite (units (unknown) date) [STRAGA^Strep unknown) agalactiae - (group b)] (unknown) (no (unknown) (unknown) Group B Strep (units ( unknown) date) pos unknown) (unknown) (no (unknown) (unknown) No Further (units (unk n) date) Workup unknown) (unknown) (no (unknown) (unknown) sensitive to (units (u nown) date) penicillins and unknown) cephalosporins. Result panel 5 (unknown) (no (unknown) (unknown) (no value) (units (unk n) date) unknown) (unknown) (no (unknown) (unknown) (no value) (units (unk n) date) unknown) (unknown) (no (unknown) (unknown) >100,000 CFU/ml (o ) date) (unknown) (no (unknown) (unknown) <10,000 CFU/ml () date) (unknown) (no (unknown) (unknown) All (units () date) Beta-hemolytic unknown) Streptococcus organisms are considered (unknown) (no (unknown) (unknown) GenericComposite (units (unknown) date) [STASAP^Staphyloc unknown) occus saprophyticus] (unknown) (no (unknown) (unknown) GenericComposite (units (unknown) date) [STRAGA^Strep unknown) agalactiae - (group b)] (unknown) (no (unknown) (unknown) Group B Strep (units ( unknown) date) pos unknown) (unknown) (no (unknown)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
[2021-12-30] MEDS ORDERED: LIDOCAINE 1%-EPI 1:100000 20 ML MDV SUBQ STA (11:54)
--- NOTE | 2021-12-30 11:56 | ED Physician Documentation ---
PD HPI WOUND RECHECK - Stated complaint Stated Complaint: L ARM SWELLING - Chief complaint Chief Complaint: Wound - Histroy obtained from History obtained from: Patient - Additional information Additional information: Otherwise healthy 21-year-old woman got a tattoo on the left bicep a couple weeks ago and over the last day has noted some small pustular lesions in that area 1 of which drained spontaneously this morning. No fevers or chills. Review of Systems Constitutional: reports: Reviewed and negative Ears: reports: Reviewed and negative Throat: reports: Reviewed and negative Cardiac: reports: Reviewed and negative PD PAST MEDICAL HISTORY - Past Surgical History Ortho: Other (foot surgery) - Present Medications Home Medications: Ambulatory Orders Medication Instructions Recorded Confirmed Sulfamethox/Trimeth 800/160 1 each PO BID #10 tablet 01/15/19 [Bactrim Ds] cephALEXin [Keflex] 500 mg PO Q6H #28 cap 09/13/21 cephALEXin [Keflex] 500 mg PO Q6H #28 cap 12/30/21 - Allergies Allergies/Adverse Reactions: Allergies Allergy/AdvReac Type Severity Reaction Status Date / Time No Known Drug Allergies Allergy Verified 12/30/21 11:34 - Social History Smoking Status: Never smoker PD ED PE NORMAL - Vitals Vital signs reviewed: Yes - General General: Alert and oriented X 3, No acute distress - Derm Derm: Other (She has 3 pustules in the area of a new tattoo over the left bicep with mild overlying cellulitis.) - Neuro Neuro: Alert and oriented X 3, Normal speech Results - Vitals Vitals: Vital Signs - 24 hr 12/30/21 11:30 Temperature 36.5 C Heart Rate 66 Respiratory 16 Rate Blood Pressure 126/71 O2 Saturation 98 Oxygen O2 Source Room air Procedures - Abscess I&D (location) L arm Preparation: Lidocaine 1%, With epi Incision: Needle aspiration Other: Pt tolerated well, Dressing applied, Antibiotic prescribed Departure - Departure Disposition: 01 Home, Self Care Clinical Impression: Cellulitis of left arm Condition: Good Record reviewed to determine appropriate education?: Yes Instructions: ED Staph Infec Abx Tx Only Prescriptions: cephALEXin [Keflex] 500 mg PO Q6H #28 cap Comments: I sent your prescription electronically to [facility] in [place]. We are performing a wound culture, the results should be done in 48-72 hours. If antibiotic change is necessary we will call you. Return if worse in the meantime, especially if you develop increased pain, fevers, cannot keep down the medication. Otherwise follow-up with your physician in approximately 2-3 days.
== END 2021-12-30 12:14 | disposition home or self-care (01) ==
LOC: ED 11:22
DX: L03.114 Cellulitis of left upper limb (principal)
CPT/HCPCS: 10160; 87070; 87181; 87205

== ENCOUNTER 2022-04-30 07:00 | Outpatient (CLI) | payer MEDICAID ==
[2022-04-30 22:03] LABS: BACTERIAL VAGINOSIS DNA NEGATIVE (NEGATIVE); CANDIDA KRUSEI DNA NEGATIVE (NEGATIVE); TRICHOMONAS VAGINALIS DNA NEGATIVE (NEGATIVE)
[2022-04-30 22:04] LABS: CANDIDA GLABRATA DNA NEGATIVE (NEGATIVE); CANDIDA GROUP DNA POSITIVE (NEGATIVE)
[2022-04-30 23:14] LABS: CHLAMYDIA TRACHOMATIS DNA NEGATIVE (NEGATIVE); NEISSERIA GONORRHOEAE DNA NEGATIVE (NEGATIVE)
== END 2022-04-30 23:59 | disposition home or self-care (01) ==
LOC: LAB.WC 07:00
PROVIDERS: ATTEND Nurse Practitioner
DX: L29.8 Other pruritus (principal); R30.0 Dysuria; Z11.3 Encounter for screening for infections with a predominantly sexual mode of transmission
CPT/HCPCS: 81514; 87077; 87086; 87491; 87591; 87661

== ENCOUNTER 2022-04-30 15:16 | Outpatient (CLI) | payer MEDICAID ==
[2022-04-30 15:45] LABS: ESTIMATED AVERAGE GLUCOSE 97 mg/dL (70-100)
[2022-05-01 08:09] LABS: HBsAG SCREEN Negative (Negative)
[2022-05-01 11:11] LABS: HSV 2 IGG TYPE SPEC <0.91 index (0.00-0.90)
[2022-05-02 04:07] LABS: HCV AB <0.1 s/co ratio (0.0-0.9)
[2022-05-02 07:07] LABS: RPR Non Reactive (Non Reactive)
[2022-05-02 11:08] LABS: HIV SCREEN 4TH GENERATION Non Reactive (Non Reactive)
== END 2022-04-30 15:17 | disposition home or self-care (01) ==
LOC: LAB 15:16
PROVIDERS: ATTEND Nurse Practitioner
DX: Z11.3 Encounter for screening for infections with a predominantly sexual mode of transmission (principal)
CPT/HCPCS: 36415; 83036; 86592; 86695; 86696; 86803; 87340; 87389

== ENCOUNTER 2022-05-18 14:01 | Outpatient (CLI) | payer MEDICAID ==
[2022-05-18 14:57] LABS: BILIRUBIN,URINE NEGATIVE (NEGATIVE); GLUCOSE, URINE (UA) NEGATIVE (NEGATIVE); KETONES,URINE (UA) NEGATIVE (NEGATIVE); LEUKOCYTE ESTERASE, URINE NEGATIVE (NEGATIVE); NITRITE,URINE NEGATIVE (NEGATIVE); OCCULT BLOOD,URINE NEGATIVE (NEGATIVE); PROTEIN,URINE NEGATIVE (NEGATIVE); UROBILINOGEN,URINE 0.2 (NORMAL) E.U./dL (NORMAL)
[2022-05-18 15:04] LABS: CLARITY,URINE CLOUDY (CLEAR)
[2022-05-18 15:15] LABS: AMORPHOUS SEDIMENT,UR Marked /LPF; BACTERIA,URINE Rare /HPF (None Seen); RBC,URINE None Seen /HPF (0-5); SQUAMOUS EPITHELIAL CELL,UR FEW Squamous (<= Few); WBC,URINE 0-3 /HPF (0-5)
[2022-05-18 22:42] LABS: BACTERIAL VAGINOSIS DNA NEGATIVE (NEGATIVE); CANDIDA GLABRATA DNA NEGATIVE (NEGATIVE); CANDIDA GROUP DNA NEGATIVE (NEGATIVE); CANDIDA KRUSEI DNA NEGATIVE (NEGATIVE); TRICHOMONAS VAGINALIS DNA NEGATIVE (NEGATIVE)
== END 2022-05-18 14:02 | disposition home or self-care (01) ==
LOC: LAB 14:01
PROVIDERS: ATTEND Nurse Practitioner
DX: N89.8 Other specified noninflammatory disorders of vagina (principal); L29.8 Other pruritus
CPT/HCPCS: 81001; 81003; 81514; 87086

== ENCOUNTER 2022-09-08 11:23 | Emergency (ER) | payer MEDICAID ==
[2022-09-08 11:33] VITALS: BP 115/73
--- NOTE | 2022-09-08 11:59 | ED Physician Documentation ---
PD HPI UPPER EXT INJURY - Stated complaint Stated Complaint: LT FINGER LAC - Chief complaint Chief Complaint: Laceration - History obtained from History obtained from: Patient - History of Present Illness Location: Left, Other (Thumb) - Additonal information Additional information: 19-year-old female presents with left thumb laceration. She was opening a tin c an fish and accidentally lacerated the thumb pad. Bleeding controlled prior to arrival. She states her tetanus is up-to-date. No other injuries. PD PAST MEDICAL HISTORY - Past Medical History Past Medical History: No - Past Surgical History Ortho: Other (foot surgery) - Present Medications Home Medications: Ambulatory Orders Medication Instructions Recorded Confirmed No Known Home Medications 09/08/22 09/08/22 - Allergies Allergies/Adverse Reactions: Allergies Allergy/AdvReac Type Severity Reaction Status Date / Time No Known Drug Allergies Allergy Verified 09/08/22 11:29 - Social History Smoking Status: Never smoker PD ED PE NORMAL - Vitals Vital signs reviewed: Yes - General General: Alert and oriented X 3, No acute distress, Well developed/nourished - Derm Derm: Normal color, Warm and dry, Other (Half centimeter shallow laceration left thumb pad, no tendon involvement) - Extremities Extremities: No deformity, No tenderness to palpate, Normal ROM s pain Results - Vitals Vitals: Vital Signs - 24 hr 09/08/22 09/08/22 11:29 11:54 Temperature 36.5 C Heart Rate 69 Respiratory 16 16 Rate Blood Pressure 115/73 O2 Saturation 100 Oxygen O2 Source Room air Procedures - Laceration (location) Finger left Ventral Length in cm: 0.5 Wound type: Linear Neurovascular status: Sensory intact, Motor intact, Vascular intact Wound preparation: Hibiclens, Irrigated copiously NS Skin layer closure: Dermabond, Steri strips Other: Patient tolerated well, Tetanus UTD PD Medical Decision Making - ED course Complexity details: d/w patient ED course: 21-year-old female presented with a small laceration of her left thumb. It is shallow, and there is no tendon involvement and she has good range of motion of the area. I advised that it did not need to be sutured, we can place Dermabond and Steri-Strips in the area. Patient agreeable. We cleaned thoroughly with normal saline and Hibiclens and then Dermabond was applied and Steri-Strips were applied. Patient advised to return if there are any signs of infection or other new concerns. Departure - Departure Disposition: 01 Home, Self Care Clinical Impression: Thumb laceration Qualifiers: Encounter type: initial encounter Damage to nail status: without damage Foreign body presence: without foreign body Laterality: left Qualified Code(s): S61.012A - Laceration without foreign body of left thumb without damage to nail, initial encounter Condition: Good Instructions: ED Laceration Hand Comments: You sustained a small laceration to the left thumb. I do not think it requires stitches but we did clean it thoroughly and applied Dermabond and Steri-Strips. Please try to keep this area clean and dry for the next week or so as it heals. No swimming or soaking. The Steri-Strips and glue will slowly dissolve and fall off. At which time you can apply a Band-Aid until the wound is completely healed. Return if there are any signs of infection
== END 2022-09-08 12:16 | disposition home or self-care (01) ==
LOC: ED 11:23
DX: S61.012A Laceration without foreign body of left thumb without damage to nail, initial encounter (principal); W26.8XXA Contact with other sharp object(s), not elsewhere classified, initial encounter
CPT/HCPCS: 12001; 99282

== ENCOUNTER 2023-01-27 08:00 | Outpatient (CLI) | payer BC, MEDICAID ==
[2023-01-27 16:20] LABS: BILIRUBIN,URINE NEGATIVE (NEGATIVE); GLUCOSE, URINE (UA) NEGATIVE (NEGATIVE); KETONES,URINE (UA) NEGATIVE (NEGATIVE); LEUKOCYTE ESTERASE, URINE SMALL (NEGATIVE); NITRITE,URINE NEGATIVE (NEGATIVE); OCCULT BLOOD,URINE NEGATIVE (NEGATIVE); PH,URINE 5.5 PH (5.0-7.5); PROTEIN,URINE NEGATIVE (NEGATIVE); UROBILINOGEN,URINE 0.2 (NORMAL) E.U./dL (NORMAL)
[2023-01-27 16:25] LABS: CLARITY,URINE CLOUDY (CLEAR)
[2023-01-27 16:35] LABS: BACTERIA,URINE Few /HPF (None Seen); RBC,URINE 0-5 /HPF (0-5); SQUAMOUS EPITHELIAL CELL,UR FEW Squamous (<= Few); WBC,URINE >25 /HPF (0-5)
== END 2023-01-27 23:59 | disposition home or self-care (01) ==
LOC: LAB.WC 08:00
PROVIDERS: ATTEND Obstetrics & Gynecology
DX: R30.0 Dysuria (principal)
CPT/HCPCS: 81001; 87086; 87181

== ENCOUNTER 2023-02-01 10:29 | Outpatient (CLI) | payer BC ==
--- NOTE | 2023-02-01 12:50 | XRAY Report ---
PROCEDURE: Hand 2 View RT INDICATIONS: RIGHT THUMB PAIN TECHNIQUE: 2 views of the hand(s) acquired. COMPARISON: None. FINDINGS: Bones: No fractures or dislocations. No suspicious bony lesions. Soft tissues: No suspicious soft tissue calcifications or masses. IMPRESSION: No acute bony abnormality. Reviewed by: Sarahi Mills MD on 02/01/2023 12:49 PM PST Approved by: Sarahi Mills MD on 02/01/2023 12:49 PM PST Station ID: [id number]
== END 2023-02-01 23:59 | disposition home or self-care (01) ==
LOC: DI.N 10:29
PROVIDERS: ATTEND Specialist
DX: M79.644 Pain in right finger(s) (principal)

== ENCOUNTER 2023-12-05 15:51 | Outpatient (CLI) | payer BC | END 2023-12-05 15:52 | disposition home or self-care (01) | LOC: LAB 15:51 | PROVIDERS: ATTEND Nurse Practitioner | DX: Z71.89 Other specified counseling (principal) | CPT/HCPCS: 36415; 84144 ==

== ENCOUNTER 2024-12-19 20:32 | Inpatient (IN) ==
[2024-12-19] MEDS ORDERED: fentaNYL 100 MCG/2 ML VIAL IVP PRN (22:29)
[2024-12-19] MEDS ORDERED: hydrALAZINE INJ 20 MG/ML VIAL IVP PRN (22:29)
[2024-12-19] MEDS ORDERED: LABETALOL 20 MG/4 ML SYRINGE IVP PRN ×3 (22:29)
[2024-12-19] MEDS ORDERED: METHYLERGONOVINE 0.2 MG/ML VIAL IM PRN (22:29)
[2024-12-19] MEDS ORDERED: OXYTOCIN 10 UNIT/ML VIAL IM PRN (22:29)
[2024-12-19] MEDS ORDERED: CARBOPROST TROMETHAMINE 250 MCG/ML VIAL IM PRN (22:29)
[2024-12-19] MEDS ORDERED: TERBUTALINE 1 MG/ML VIAL SUBQ PRN (22:29)
[2024-12-19] MEDS ORDERED: TRANEXAMIC ACID IN NACL 1,000 MG/100 ML BAG IV PRN (22:29)
[2024-12-19] MEDS ORDERED: SODIUM CHLORIDE FLUSH 0.9% 10 ML SYRINGE IVP PRN (22:29)
--- NOTE | 2024-12-19 22:52 | HISTORY & PHYSICAL EXAMINATION ---
Admit History Smoking Status: Never smoker HPI Current : Vital Signs Temperature 98.1 F 12/19/24 21:14 Pulse Rate 99 12/19/24 21:14 Respiratory Rate 18 12/19/24 21:14 Blood Pressure 130/80 12/19/24 21:14 Meds/Allgy Home Medications Ambulatory Orders Medication Instructions Recorded Confirmed vits no.126-ferrous fum tab PO 04/26/2412/18 28 mg iron-folic acid 800 mcg tablet (Classic ) metoclopramide HCl 10 mg tablet 10 mg PO Q6H PRN nause a and 07/24/24 12/18/24 (Reglan) vomiting #90 tabs blood sugar diagnostic #100 ea 10/08/24 12/18/24 blood-glucose meter #1 ea 10/08/24 12/18/24 lancets #200 ea 10/08/24 12/18/24 ferrous sulfate 325 mg (65 mg 325 mg PO Q OTHER DAY #9 0 tabs 11/10/24 12/18/24 iron) tablet breast pump #1 ea 11/16/24 12/18/24 Allergies Allergies Allergy/AdvReac Type Severity Reaction Status Date / Time No Known Drug Allergies Allergy Verified 12/18/24 11:09 [facility] Medical History Medical History (Updated 12/19/24 @ 23:00 by Alta Moser CRNA) Migraines Positive test Supervision of normal Arrhythmia Anemia complicating , third trimester Family History Family History (Updated 04/26/24 @ 13:25 by Suha Greene RN) Maternal grandmother CVA (cerebral vascular accident) Father Psoriasis Maternal grandfather CAD (coronary artery disease) Social History Social History (Updated 11/07/24 @ 00:34 by Mirta Murphy CNM, COMPUTER TECHNOLOGIST) Smoking Status: Former smoker If you are a former smoker, when did you quit? (Date/Year): 11/03/18 How many cigarettes a day do you smoke? (20 cigarettes=1 Pk): 3 Initiate information on smoking cessation: No Physical Abdominal Exam Vital Signs: Temp Pulse Resp BP 98.1 F 99 18 130/80 12/19/24 21:14 12/19/24 21:14 12/19/24 21:14 12/19/24 21:14 Plan for Labor Plan For Labor I expect patient to be DC'd or transferred within 96 hours.: Yes Plan for Labor: Samira is a 24yo @ 39.3wks gestation by 9.1wk U/S who presents to [facility] in active labor. Upon arrival cervix was 5/80/-2 and vertex with intact membranes. FHR Baseline 150s. She is found to contract every 3-5 minutes with soft resting tone. She denies vaginal bleeding or leakage of fluid. She reports +FM. She has been a patient of [facility] for the duration of her which has remained uncomplicated with the exception of mild anemia complicating . In addition she is noted to have gained 60lbs this . She will be admitted to [facility] for expectant management. In the event of an emergency, ACCEPTS the administration of blood products FOB Rupesh PROBLEMS: -Anemia complicating -FeSO4 initiated 11/11/2023 -Iron infusion ordered, pending -Excessive weight gain in (60lbs) OB hx: G1: 10/04/2018: (Girl, Jyoti) G2: Current Medical Hx: migraines Surgical Hx: None Social Hx: Monogamous with male partner Rupesh (different FOB than first baby) and he has an 11 year old from a previous relationship. Denies current use of alcohol or tobacco, marijuana or other recreational drugs. Reports that she is safe in current relationship. Family Hx: Denies family history of congenital anomalies, Cystic Fibrosis or chromosomal abnormalities. GM cerebral thrombosis in advanced age, M gestational diabetes Allergies:NKDA Medications: PNV LMP:03/01/24 JOHN by LMP: 12/09/24 U/S: 05/21/2024 Final JOHN: 12/23/2024 Pre- weight:165 BMI: 28.5 Blood type: A+ Antibody screen: Negative CBC: [id number] HCT 36.8 HGB 11.9 Rubella: Immune VZV: Immune HBsAg: Negative HepC: NR RPR/AB-EIA: NR HIV: NR Flu: COVID: PAP: 11/24/23 - normal GC/CT: negative HSV: denies in self and partner Genetic Testing: Myriad Negative; AFP declined FAS: Placenta: posterior w/o previa Cord:3VC GEORGETTE: WNL EFW: 416g 78%ile 50gm GCT: vomited/ profiling 3rd trimester H/H PLT - 11.2/33.9, 247 TDAP: declined GBS: 12/04/2024 negative Physical exam: Normocephalic, atraumatic Heart RRR w/o M/G/R Lungs CTAB Abdomen gravid, soft, nontender EFW 3800g FHR baseline 150s, moderate variability, + accels, no decels Contractions palpate moderate every 3-5 minutes with soft resting tone SVE 5/80/-2, soft, midposition and vertex with intact membranes Bilateral LE's trace edema Mood is good Assessment: 24yo @ 39.3wks gestation by 9.1wk U/S Active labor Anemia complicating FHR Category I GBS negative Plan: Admit to [facility] for expectant management. Continuous monitoring. Encouraged ambulation and position changes. Nitrous oxide PRN. Jacuzzi PRN. Epidural per maternal request. Anticipate .
[2024-12-19 22:56] LABS: HCT - HEMATOCRIT 36.6 % (37.0-47.0); HGB - HEMOGLOBIN 12.1 g/dL (12.0-16.0); MEAN PLATELET VOLUME 9.9 fL (7.9-10.8); NRBC ABSOLUTE COUNT (AUTO) 0.00 x10^3/uL; NUCLEATED RED BLOOD CELLS AUTO 0.0 /100WBC; PLT - PLATELET COUNT 275 10^3/uL (130-450); RED CELL DISTRIBUTION WIDTH 15.9 % (12.0-15.0)
--- NOTE | 2024-12-19 23:01 | ANESTHESIA PROCEDURE NOTE ---
Pre-Anesthesia VS, & Labs Diagnosis Surgical Diagnosis:: labor pain Procedure Procedure: labor epidural Vitals Vital Signs: Temp Pulse Resp BP 36.7 C 99 18 130/80 12/19/24 21:14 12/19/24 21:14 12/19/24 21:14 12/19/24 21:14 NPO NPO: Other Is Patient ?: Yes Meds/Allgy Home Medications Ambulatory Orders Medication Instructions Recorded Confirmed vits no.126-ferrous fum tab PO 04/26/2412/18 28 mg iron-folic acid 800 mcg tablet (Classic ) metoclopramide HCl 10 mg tablet 10 mg PO Q6H PRN nause a and 07/24/24 12/18/24 (Reglan) vomiting #90 tabs blood sugar diagnostic #100 ea 10/08/24 12/18/24 blood-glucose meter #1 ea 10/08/24 12/18/24 lancets #200 ea 10/08/24 12/18/24 ferrous sulfate 325 mg (65 mg 325 mg PO Q OTHER DAY #9 0 tabs 11/10/24 12/18/24 iron) tablet breast pump #1 ea 11/16/24 12/18/24 Allergies Allergies Allergy/AdvReac Type Severity Reaction Status Date / Time No Known Drug Allergies Allergy Verified 12/18/24 11:09 PFSH Medical History Medical History (Updated 12/19/24 @ 23:00 by Alta Moser CRNA) Migraines Positive test Supervision of normal Arrhythmia Anemia complicating , third trimester Family History Family History (Updated 04/26/24 @ 13:25 by Suha Greene RN) Maternal grandmother CVA (cerebral vascular accident) Father Psoriasis Maternal grandfather CAD (coronary artery disease) Social History Social History (Updated 11/07/24 @ 00:34 by Mirta Murphy CNM, AMMONIA BOX TENDER) Smoking Status: Former smoker If you are a former smoker, when did you quit? (Date/Year): 11/03/18 How many cigarettes a day do you smoke? (20 cigarettes=1 Pk): 3 Initiate information on smoking cessation: No POLST POLST CPR Status: Attempt Resuscitation (CPR) Anesthesia Exam (Expanded) Exam General: Alert, Oriented x3 and Cooperative Dental: WNL Mouth Openin Fingerbreadth Neck Mobility: Normal Mallampati classification: II Thyromental Distance: 4-6 cm Respiratory: Lungs clear Cardiovascular: Regular rate Exam Exam Vital Signs: Vital Signs x48h Temp Pulse Resp BP 12/19/24 21:14 36.7 C 99 18 130/80 Plan Problem List (1) Anemia complicating , third trimester: (2) Arrhythmia: (3) Supervision of normal : (4) Positive test: (5) Migraines: Plan Anesthesia Type: Epidural Consent for Procedure(s) Verified and Reviewed: Yes Code Status: Attempt Resuscitation ASA Classification ASA classification: 2-Mild systemic disease Is this case an emergency?: No
--- NOTE | 2024-12-19 23:02 | PROCEDURE REPORT ---
HPI Current : Vital Signs Temperature 98.1 F 12/19/24 21:14 Pulse Rate 99 12/19/24 21:14 Respiratory Rate 18 12/19/24 21:14 Blood Pressure 130/80 12/19/24 21:14 NST Procedure NST Procedure: FHR Baseline 150s, moderate variability, + accels, no decels Contractions palapte moderate every 3-5 minutes with soft resting tone
--- NOTE | 2024-12-20 10:26 | PROVIDER PROGRESS NOTE ---
Labor Progress Note Labor Progress Note Labor Progress Note/Additional Text: S: Breathing through contractions. Was able to get a little rest last night but states her contractions feel very strong. She declined AROM on several occasions throughout the night last night but states she feels ready for AROM at this time to augment her labor as she is feeling very tired and ready to meet her baby. Reports some blood-tinged mucousy discharge at approximately 1300 last evening. Her partner Rupesh and her friend are supportive at the bedside. O: FHR baseline 140s, moderate variability, + accels, no decels Contractions palpate strong every 6-8 minutes with soft resting tone SVE 5-6/80/-2 AROM moderate amount of clear fluid A: 24yo @ 39.4wks gestation Active labor Excessive weight gain in FHR Category I GBS negative P: Continue expectant management at this time. Repeat SVE in 4hrs or sooner PRN. Consider initiation of pitocin for augmentation of labor with repeat SVE. Continuous monitoring. Encouraged ambulation and position changes. Nitrous oxide PRN. Jacuzzi PRN. Epidural per maternal request. Anticipate .
[2024-12-20] MEDS: OXYTOCIN/SODIUM CHLORIDE 500 ML IV PRN (13:06)
[2024-12-20] MEDS: LACTATED RINGERS 1,000 ML IV PRN (13:07)
[2024-12-20] MEDS ORDERED: ROPIVACAINE 0.2% 200 MG/100 ML BAG EP ONE (14:37)
[2024-12-20] MEDS ORDERED: LIDOCAINE-MPF 2% 5 ML VIAL ONE ×2 (15:14→15:25)
[2024-12-20] MEDS ORDERED: fentaNYL 100 MCG/2 ML VIAL ONE ×2 (15:25→16:57)
[2024-12-20] MEDS ORDERED: NALBUPHINE 10 MG/ML AMP IVP PRN (15:36)
[2024-12-20] MEDS ORDERED: NALOXONE 0.4 MG/ML VIAL IVP PRN ×2 (15:36→23:16)
[2024-12-20] MEDS ORDERED: METOCLOPRAMIDE 10 MG/2 ML VIAL IVP PRN (15:36)
[2024-12-20] MEDS ORDERED: ONDANSETRON 4 MG/2 ML VIAL IVP PRN (15:36)
--- NOTE | 2024-12-20 15:56 | PROVIDER PROGRESS NOTE ---
Labor Progress Note Labor Progress Note Labor Progress Note/Additional Text: 24yo epidural recently completed and anesthesia working to help her with pain control. Feeling persistant increased pressure. Pit at 4mu/min. Contractions q 2-2.5. SVE by provider per RN request /-2. Will continue to work with anesthesia for good pain control.
[2024-12-20] MEDS ORDERED: BUPIVACAINE 0.25% PF 10 ML VIAL ONE (16:57)
[2024-12-20] MEDS: ePHEDrine 50 MG/ML VIAL IVP PRN (17:45)
[2024-12-20] MEDS: LACTATED RINGERS 500 ML IV ONE (18:36)
--- NOTE | 2024-12-20 19:25 | PROVIDER PROGRESS NOTE ---
Subjective Subjective Subjective: C/C/-1 @ 1730 and active pushing began. Increase in FHR baseline to 165-170 with pushing and accompanied by variable decelerations. Attempted to take rest approximately 45 minutes into pushing however baby did not tolerate it well and active pushing resumed. Hypotensive episode followed adequate pain control. CTX q 2-3 attempted to increase pitocin and allow for a second pushing rest at 1915. Patient very exhausted and minimal descent. Noted significant increase to vulvar and vaginal swelling. Will reassess after a rest to regain maternal strength. The timeline of rest is dependent on tolerance. Back-up OBGYN updated on patient status and plan approximately 19:30. Current Medications Current Medications Current Medications: Current Medications Generic Name Dose Route Start Last Admin Trade Name Freq PRN Reason Stop Dose Admin Carboprost Tromethamine 250 mcg 12/19/24 22:29 Carboprost Tromethamine 250 Mcg/Ml Vial IM .ONCE PRN Hemorrhage Diphenhydramine HCl 12.5 - 25 mg 12/20/24 15:36 Diphenhydramine Inj 50 Mg/Ml Vial IVP Q6HR PRN ITCHING Ephedrine Sulfate 5 mg 12/20/24 15:36 12/20/24 18:26 Ephedrine 50 Mg/Ml Vial IVP 5 mg Q5M PRN Administration For SBP<100;give until SBP>100 Fentanyl 50 mcg 12/19/24 22:29 Fentanyl 100 Mcg/2 Ml Vial IVP Q1H PRN Severe Pain (score 7-10) Hydralazine HCl 5 - 10 mg 12/19/24 22:29 Hydralazine Inj 20 Mg/Ml Vial IVP Q20M PRN SBP> or= 160 OR DBP> or= 110 Protocol Lactated Ringer's 500 mls @ 999 mls/hr 12/19/24 22:29 12/20/24 17:31 Lr IV 999 mls/hr PRN PRN Administration PER PHYSICIAN ORDER Oxytocin/Sodium Chloride 500 mls @ 999 mls/hr 12/19/24 22:29 12/20/24 19:05 Pitocin/Sodium Chloride IV 6 milliunit/min PRN PRN 6 mls/hr POST- HEMORR PREVENTION Titration Protocol 999 MILLIUNIT/MIN Tranexamic Acid 1,000 mg in 100 mls @ 600 mls/hr 12/19/24 22:29 Tranexamic 1,000 Mg/100ml-Nacl IV Q30M PRN EBL >1200mL and within 3hr Ropivacaine 200 mg in 100 mls @ 0 mls/hr 12/20/24 15:36 Naropin 0.2% EP PRN PRN PAIN Protocol Per Protocol Labetalol HCl 20 - 80 mg 12/19/24 22:29 Labetalol 20 Mg/4 Ml Syringe IVP Q10M PRN SBP> or= 160 OR DBP> or= 110 Protocol Labetalol HCl 20 mg 12/19/24 22:29 Labetalol 20 Mg/4 Ml Syringe IVP .ONCE PRN SBP> or= 160 OR DBP> or= 110 Protocol Lidocaine HCl 20 ml 12/19/24 22:29 Lidocaine 1% 20 Ml Mdv ID 12/22/24 22:33 .ONCE PRN PERINEAL REPAIR Methylergonovine Maleate 0.2 mg 12/19/24 22: Methylergonovine 0.2 Mg/Ml Vial IM .ONCE PRN Hemorrhage Metoclopramide HCl 10 mg 12/20/24 15:36 Metoclopramide 10 Mg/2 Ml Vial IVP Q6HR PRN Nausea / Vomiting Misoprostol 600 mcg 12/19/24 22:29 Misoprostol 200 Mcg Tablet BC .ONCE PRN Hemorrhage Misoprostol 800 mcg 12/19/24 22:29 Misoprostol 200 Mcg Tablet OK .ONCE PRN Hemorrhage Nalbuphine HCl 2.5 - 5 mg 12/20/24 15:36 Nalbuphine 10 Mg/Ml Amp IVP Q4H PRN ITCHING Naloxone HCl 0.1 mg 12/20/24 15:36 Naloxone 0.4 Mg/Ml Vial IVP Q2M PRN RR<8 Nifedipine 10 - 20 mg 12/19/24 22:29 Nifedipine 10 Mg Capsule PO Q20M PRN SBP> or= 160 OR DBP> or= 110 Protocol Ondansetron HCl 4 mg 12/20/24 15:36 Ondansetron 4 Mg/2 Ml Vial IVP Q6HR PRN Nausea / Vomiting Oxytocin 10 unit 12/19/24 22:29 Oxytocin 10 Unit/Ml Vial IM .ONCE PRN Step One if no IV access. Sodium Chloride 10 ml 12/19/24 22:29 Sodium Chloride Flush 0.9% 10 Ml Syringe IVP PRN PRN NEEDED PER PROVIDER ORDERS Sodium Chloride 10 ml 12/19/24 23:00 Sodium Chloride Flush 0.9% 10 Ml Syringe IVP Q8H [place] Terbutaline Sulfate 0.25 mg 12/19/24 22:29 Terbutaline 1 Mg/Ml Vial SUBQ .ONCE PRN Tachystole Objective Vital Signs/Intake & Output Intake & Output: Intake & Output 12/17/24 12/18/24 12/19/24 12/20/24 23:59 23:59 23:59 23:59 Intake Total 522 / 522 Output Total 70 / 70 Balance 452 / 452 Weight (kg) 225 lb 224 lb 13.944 oz Lab Results 12/19/24 22:40 Other Labs: Lab Results x24hrs 12/19/24 Range/Units 22:40 WBC 12.3 H (4.8-10.8) x10^3/uL RBC 3.91 L (4.20-5.40) 10^6/uL Hgb 12.1 (12.0-16.0) g/dL Hct 36.6 L (37.0-47.0) % MCV 93.6 (81.0-99.0) fL MCH 30.9 (27.0-31.0) pg MCHC 33.1 (32.0-36.0) g/dL RDW 15.9 H (12.0-15.0) % Plt Count 275 (130-450) 10^3/uL MPV 9.9 (7.9-10.8) fL Neut # (Auto) 8.5 H (1.5-6.6) 10^3/uL Lymph # (Auto) 2.2 (1.5-3.5) 10^3/uL [place] # (Auto) 1.3 H (0.0-1.0) 10^3/uL Eos # (Auto) 0.3 (0.0-0.7) 10^3/uL Baso # (Auto) 0.0 (0.0-0.1) 10^3/uL Absolute Nucleated RBC 0.00 x10^3/uL Nucleated RBC % 0.0 /100WBC Blood Type A POSITIVE Antibody Screen NEGATIVE Assessment/Plan Problem List (1) Anemia complicating , third trimester: (2) Arrhythmia: (3) Supervision of normal : (4) Positive test: (5) Migraines:
[2024-12-20] MEDS: ROPIVACAINE 0.2% 200 MG/100 ML BAG EP PRN (20:33)
[2024-12-20] MEDS ORDERED: LABETALOL 5 MG/1 ML 20 ML MDV IVP PRN (23:16)
[2024-12-20] MEDS ORDERED: hydrALAZINE INJ 20 MG/ML VIAL IVP PRN ×2 (23:16)
[2024-12-20] MEDS ORDERED: LABETALOL 20 MG/4 ML SYRINGE IVP PRN ×2 (23:16)
[2024-12-20] MEDS ORDERED: OXYTOCIN/SODIUM CHLORIDE 500 ML IV PRN (23:16)
--- NOTE | 2024-12-20 23:30 | DELIVERY NOTE ---
OB Labor and Delivery Note Delivery Comments (Free Text/Narrative) Delivery Comments (Free Text/Narrative): This 24 -year-old, G 2 P 1 @ 39+3 weeks gestation presented late last evening in active labor and in stable condition. Cervix was 5cm and Vertex presentation by exam. GBS negative. AROM occurred @ 1009. She progressed to 5-6cm after AROM and contractions began to space. Oxytocin was introduced as labor augmentation. Maximum infusion 8mu/min. FHR pattern demonstrated 130 baseline in a category I prior to second stage. Prolonged labor course. Epidural placed upon maternal request then replaced as she came close to second stage. She then progressed to complete/complete @ 1731 and second stage began. Significantly prolonged second stage. Pushing breaks x2 for maternal exhaustion and recovery. : Normal spontaneous vaginal delivery of a viable male infant on 12/20/2024 @ 2250. Nuchal x 2, unable to reduce. Attempted to clamp and cut however body quickly followed delivery of the head and we delivered through the double nuchal. head OA after restitution. The was placed on maternal abdomen, stimulated, dried and placed skin to skin. Apgars 6 & 9 @ 1 & 5 minutes. The umbilical cord was cute prior to DCC given initial presentation of baby, which quickly resolved with stimulation. Respiratory therapy available and on standby at time of delivery. Cord clamped by provider and cut by FOB. 3VC. Cord blood was obtained. Fundal massage and gently cord traction applied for active management of the third stage, placenta delivered spontaneously and intact and appeared normal @ 2258. EBL at the time of this documentation was 200cc post placenta. Placenta was not sent to pathology. Pitocin administered via IV for hemostasis and allowed to run freely. Uterine massage was performed until uterus was deemed firm. weight pending at this time but likely very LGA. Inspection of the perineum noted to be intact. Significantly edemitous. Upon re-inspection the patient was hemostatic. Uterus again massaged and found to be firm. Needle and sponge counts were correct. Uterine fundus firm and there is no excessive bleeding. Tissues well approximated. Skin to skin initiated. Family bonding well. Both mother and baby are in stable condition.
[2024-12-21] MEDS: IBUPROFEN 600 MG TABLET PO PRN (00:40)
[2024-12-21] MEDS: ACETAMINOPHEN 500 MG TABLET PO PRN (07:48)
[2024-12-21] MEDS: DOCUSATE SODIUM 100 MG CAPSULE PO SCH (08:07)
[2024-12-21] MEDS: SIMETHICONE CHEW 80 MG TABLET PO PRN (08:07)
[2024-12-21] MEDS: GABAPENTIN 300 MG CAPSULE PO PRN (09:35)
--- NOTE | 2024-12-21 09:53 | PROVIDER PROGRESS NOTE ---
Subjective Subjective Subjective: Subjective: Pretty uncomfortable. Some epigastric discomfort, mild relief from simethacone but vaginal/tailbone/pubic bone pain, not well controlled with IBU/Tylenol. Added PRN Gabepentin for pain. Epigastric pain remains. Feels it's more of how she was positioned during pushing and kicks through second stage. It's not localized to any particular area. Lochia appropriate. Denies heavy bleeding. Ambulating but slowly Tolerating oral intake. Diet: Regular. Voiding without difficulty. Passing some flatus. Denies BM. Patient is bonding with baby in room Breast feeding going well. Denies feeling lightheaded, dizzy or excessively fatigued. Objective BP mildly elevated 142/74 while I was in the room, normal on repeat. General: Alert, oriented, no apparent distress. Cardiovascular: 2+ pitting edema to lower extremities. Lungs: No increased work of breathing. Abdomen: Uterus firm. Below umbilicus. No guarding or rebound tenderness. Extremities: No pain on palpation. Distal pulses intact. VZV: Reactive/immune Rubella: immune Blood type: A+ Assessment and Plan day 1. 24yo s/p on 12/21/2024 following spontaneous onset of labor. Intact perineum. . PPD#1 doing well overall well with some increased epigastric and vulvar discomfort. - Routine care - Anticipate discharge tomorrow. Possibly tonight, but dependent upon baby discharge Current Medications Current Medications Current Medications: Current Medications Generic Name Dose Route Start Last Admin Trade Name Freq PRN Reason Stop Dose Admin Acetaminophen 1,000 mg 12/20/24 23:16 12/21/24 07:48 Acetaminophen 500 Mg Tablet PO 1,000 mg Q8HR PRN Administration Mild Pain or Fever>38C(100.4F) Carboprost Tromethamine 250 mcg 12/19/24 22:29 Carboprost Tromethamine 250 Mcg/Ml Vial IM .ONCE PRN Hemorrhage Diphenhydramine HCl 12.5 - 25 mg 12/20/24 15:36 Diphenhydramine Inj 50 Mg/Ml Vial IVP Q6HR PRN ITCHING Docusate Sodium 100 mg 12/21/24 09:00 12/21/24 08:07 Docusate Sodium 100 Mg Capsule PO 100 mg BID BURTON Administration Ephedrine Sulfate 5 mg 12/20/24 15:36 12/20/24 18:26 Ephedrine 50 Mg/Ml Vial IVP 5 mg Q5M PRN Administration For SBP<100;give until SBP>100 Fentanyl 50 mcg 12/19/24 22:29 Fentanyl 100 Mcg/2 Ml Vial IVP Q1H PRN Severe Pain (score 7-10) Gabapentin 300 mg 12/21/24 09:11 12/21/24 09:35 Gabapentin 300 Mg Capsule PO 300 mg TID PRN Administration PAIN 5-7 Hydralazine HCl 5 - 10 mg 12/19/24 22:29 Hydralazine Inj 20 Mg/Ml Vial IVP Q20M PRN SBP> or= 160 OR DBP> or= 110 Protocol Hydralazine HCl 10 mg 12/20/24 23:16 Hydralazine Inj 20 Mg/Ml Vial IVP .ONCE PRN SBP> or= 160 OR DBP> or= 110 Protocol Hydralazine HCl 5 - 10 mg 12/20/24 23:16 Hydralazine Inj 20 Mg/Ml Vial IVP Q20M PRN SBP >=160 and/or DBP >=110 Protocol Lactated Ringer's 500 mls @ 999 mls/hr 12/19/24 22:29 12/20/24 17:31 Lr IV 999 mls/hr PRN PRN Administration PER PHYSICIAN ORDER Oxytocin/Sodium Chloride 500 mls @ 999 mls/hr 12/19/24 22:29 12/20/24 20:37 Pitocin/Sodium Chloride IV 8 milliunit/min PRN PRN 8 mls/hr POST- HEMORR PREVENTION Titration Protocol 999 MILLIUNIT/MIN Tranexamic Acid 1,000 mg in 100 mls @ 600 mls/hr 12/19/24 22:29 Tranexamic 1,000 Mg/100ml-Nacl IV Q30M PRN EBL >1200mL and within 3hr Ropivacaine 200 mg in 100 mls @ 0 mls/hr 12/20/24 15:36 12/20/24 20:33 Naropin 0.2% EP 10 mls/hr PRN PRN Administration PAIN Protocol Per Protocol Oxytocin/Sodium Chloride 500 mls @ 999 mls/hr 12/20/24 23:16 Pitocin/Sodium Chloride IV PRN PRN POST- HEMORR PREVENTION Protocol 999 MILLIUNIT/MIN Ibuprofen 600 mg 12/20/24 23:16 12/21/24 07:50 Ibuprofen 600 Mg Tablet PO 600 mg Q6HR PRN Administration Moderate Pain (Level 4-6) Labetalol HCl 20 - 80 mg 12/19/24 22:29 Labetalol 20 Mg/4 Ml Syringe IVP Q10M PRN SBP> or= 160 OR DBP> or= 110 Protocol Labetalol HCl 20 mg 12/19/24 22:29 Labetalol 20 Mg/4 Ml Syringe IVP .ONCE PRN SBP> or= 160 OR DBP> or= 110 Protocol Labetalol HCl 20 - 80 mg 12/20/24 23:16 Labetalol 5 Mg/1 Ml 20 Ml Mdv IVP Q10M PRN SBP> or= 160 OR DBP> or= 110 Protocol Labetalol HCl 20 - 40 mg 12/20/24 23:16 Labetalol 20 Mg/4 Ml Syringe IVP Q10M PRN SBP> or= 160 OR DBP> or= 110 Protocol Labetalol HCl 20 mg 12/20/24 23:16 Labetalol 20 Mg/4 Ml Syringe IVP .ONCE PRN SBP >=160 and/or DBP >=110 Protocol Lidocaine HCl 20 ml 12/19/24 22:29 Lidocaine 1% 20 Ml Mdv ID 12/22/24 22:33 .ONCE PRN PERINEAL REPAIR Methylergonovine Maleate 0.2 mg 12/19/24 22:29 Methylergonovine 0.2 Mg/Ml Vial IM .ONCE PRN Hemorrhage Metoclopramide HCl 10 mg 12/20/24 15:36 Metoclopramide 10 Mg/2 Ml Vial IVP Q6HR PRN Nausea / Vomiting Misoprostol 600 mcg 12/19/24 22:29 Misoprostol 200 Mcg Tablet BC .ONCE PRN Hemorrhage Misoprostol 800 mcg 12/19/24 22:29 Misoprostol 200 Mcg Tablet SC .ONCE PRN Hemorrhage Nalbuphine HCl 2.5 - 5 mg 12/20/24 15:36 Nalbuphine 10 Mg/Ml Amp IVP Q4H PRN ITCHING Naloxone HCl 0.1 mg 12/20/24 15:36 Naloxone 0.4 Mg/Ml Vial IVP Q2M PRN RR<8 Naloxone HCl 0.4 mg 12/20/24 23:16 Naloxone 0.4 Mg/Ml Vial IVP .ONCE PRN Opioid Overdose Nifedipine 10 - 20 mg 12/19/24 22:29 Nifedipine 10 Mg Capsule PO Q20M PRN SBP> or= 160 OR DBP> or= 110 Protocol Nifedipine 10 - 20 mg 12/20/24 23:16 Nifedipine 10 Mg Capsule PO Q20M PRN SBP >=160 and/or DBP >=110 Protocol Ondansetron HCl 4 mg 12/20/24 15:36 Ondansetron 4 Mg/2 Ml Vial IVP Q6HR PRN Nausea / Vomiting Oxytocin 10 unit 12/19/24 22:29 Oxytocin 10 Unit/Ml Vial IM .ONCE PRN Step One if no IV access. Simethicone 80 mg 12/20/24 23:16 12/21/24 08:07 Simethicone Chew 80 Mg Tablet PO 80 mg TID PRN Administration Gas Sodium Chloride 10 ml 12/19/24 22:29 Sodium Chloride Flush 0.9% 10 Ml Syringe IVP PRN PRN NEEDED PER PROVIDER ORDERS Sodium Chloride 10 ml 12/19/24 23:00 Sodium Chloride Flush 0.9% 10 Ml Syringe IVP Q8H BURTON Terbutaline Sulfate 0.25 mg 12/19/24 22:29 Terbutaline 1 Mg/Ml Vial SUBQ .ONCE PRN Tachystole Objective Vital Signs/Intake & Output Vital Signs: Vital Signs x48h Temp Pulse Resp BP Pulse Ox 12/21/24 07:45 36.6 C 97 20 132/72 H 98 12/21/24 03:55 36.9 C 99 18 116/65 12/21/24 02:30 37 C 117 H 20 142/74 H Intake & Output: Intake & Output 12/18/24 12/19/24 12/20/24 12/21/24 23:59 23:59 23:59 23:59 Intake Total 531 / 531 Output Total 70 / 70 1400 / 1400 Balance 461 / 461 -1400 / -1400 Weight (kg) 225 lb 224 lb 13.944 oz Lab Results 12/21/24 13:11 Assessment/Plan Problem List (1) Anemia complicating , third trimester: (2) Arrhythmia: (3) Supervision of normal : (4) Positive test: (5) Migraines:
--- NOTE | 2024-12-21 12:12 | PHARMACY PROGRESS NOTE ---
Best Possible Medication History Admit Date and Time: 12/19/24 118523 Home Medications Medication Instructions Recorded Confirmed Type vits no.126-ferrous fum 1 tab PO DAILY 12/21/24 History 28 mg iron-folic acid 800 mcg tablet (Classic ) blood sugar diagnostic #100 ea 10/08/24 12/18/24 Rx blood-glucose meter #1 ea 10/08/24 12/18/24 Rx lancets #200 ea 10/08/24 12/18/24 Rx ferrous sulfate 325 mg (65 mg 325 mg PO Q OTHER DAY #9 0 tabs 11/10/24 12/21/24 Rx iron) tablet breast pump #1 11/16/24 12/18/24 Rx Processed by: Pharmacy (Medication reconciliation completed by Industrial Relations SpecialistRaymon) Medications reviewed in ED?: No Medication History completed: Yes Patient Interview: Completed Secondary Source(s): Insurance records [facility] Statement: As the person ultimately responsible for medication therapy, providers are able to order a medication from an existing home medication list in [facility] via the "Reconcile Routine" prior to Confirmation of that medication by manager decision support. Such practice is discouraged except when the physician, in their clinical judgment, deems that a medical need exists for a medication without regard to previous use.
[2024-12-21 13:17] LABS: HCT - HEMATOCRIT 31.3 % (37.0-47.0); HGB - HEMOGLOBIN 10.4 g/dL (12.0-16.0); MEAN PLATELET VOLUME 9.6 fL (7.9-10.8); NRBC ABSOLUTE COUNT (AUTO) 0.00 x10^3/uL; NUCLEATED RED BLOOD CELLS AUTO 0.0 /100WBC; PLT - PLATELET COUNT 233 10^3/uL (130-450); RED CELL DISTRIBUTION WIDTH 15.9 % (12.0-15.0)
[2024-12-21 14:51] LABS: ALT ALANINE AMINOTRANSFERASE 23.0 IU/L (10-60); AST ASPARTATE AMINOTRANSFERASE 39.0 IU/L (10-42); BUN - BLOOD UREA NITROGEN 8.0 mg/dL (6-20); CARBON DIOXIDE - CO2 22.0 mmol/L (21-32); CREATININE 0.5 mg/dL (0.6-1.3); GFR - MDRD 150.0 (>89)
[2024-12-22 03:15] VITALS: O2SAT 99
[2024-12-22] MEDS: SODIUM CHLORIDE FLUSH 0.9% 10 ML SYRINGE IVP SCH (07:44)
--- NOTE | 2024-12-22 07:54 | Discharge Summary ---
Discharge Summary HPI History of Present Illness: Date of Admission: 12/19/2024 Date of Discharge: 12/22/2024 Diagnosis on admission: Assessment: 24yo @ 39.3wks gestation by 9.1wk U/S Active labor Anemia complicating FHR Category I GBS negative Diagnosis on Discharge 24 yo s/p 12/20/2024 @ 2250 weight 4675g Intact perineum Gestational hypertension. Physical exam: Normocephalic, atraumatic Lungs no increased work of breathing Normal uterine involution, FF below umbilicus Small/ scant rubra bleeding moderate perineal discomfort/ tenderness. She feels this is normal, just increased soreness Bilateral LE's 2+ edema. Less pitting edema than yesterday. Mood is good. Feels ready to go home. Brief History: This 24 -year-old, G 2 P 1 @ 39+3 weeks gestation presented late last evening in active labor and in stable condition. Cervix was 5cm and Vertex presentation by exam. GBS negative. AROM occurred @ 1009. She progressed to 5- 6cm after AROM and contractions began to space. Oxytocin was introduced as labor augmentation. Maximum infusion 8mu/min. FHR pattern demonstrated 130 baseline in a category I prior to second stage. Prolonged labor course. Epidural placed upon maternal request then replaced as she came close to second stage. She then progressed to complete/complete @ 1731 and second stage began. Significantly prolonged second stage. : Normal spontaneous vaginal delivery of a viable male on 12/20/2024 @ 2250. Nuchal x 2, unable to reduce. Attempted to clamp and cut however body quickly followed delivery of the head and we delivered through the double nuchal. head OA after restitution. Apgars 6 & 9 @ 1 & 5 minutes. The umbilical cord was cut prior to DCC given initial presentation of baby, which quickly resolved with stimulation. Respiratory therapy available and on standby at time of delivery. 3VC. Cord blood was obtained. Fundal massage and gently cord traction applied for active management of the third stage, placenta delivered spontaneously and intact and appeared normal @ 2258. EBL at the time of this documentation was 200cc post placenta. Pitocin administered via IV for hemostasis and allowed to run freely following delivery of placenta. LGA infant: weight 4675g She has been doing well in her course. She is ambulating and tolerating a regular diet. She is urinating without difficulty and her lochia is normal. Her pain is well controlled without narcotic management. She did receive some PRN gabepentin in addition to tylenol and IBU on PPD #1. However, she is feeling much better today. She will be discharged to home today on day 2 and encouraged IBU, tylenol and stool softeners PRN. She intends to follow up with [facility] on Tuesday12/25/2024 @ 1230. She had a few elevated blood pressures yesterday giving her the diagnosis of gestational hypertension, however they have been normal today. CMP completed yesterday showed LFTs above a previous baseline. Will repeat today and review prior to discharge. She has been given precautions to call if she has any new or worsening sx such as fevers, chills, abdominal pain, increasing bleeding, or foul smelling vaginal lochia. preeclamptic precautions reviewed as well. VZV: Reactive/immune Rubella: Immune Blood Type: A+ ALLERGIES Allergies Allergy/AdvReac Type Severity Reaction Status Date / Time No Known Drug Allergies Allergy Verified 12/18/24 11:09 MEDICATIONS Ambulatory Orders Medication Instructions Recorded Confirmed vits no.126-ferrous fum 1 tab PO DAILY 12/21/24 28 mg iron-folic acid 800 mcg tablet (Classic ) blood sugar diagnostic #100 ea 10/08/24 12/18/24 blood-glucose meter #1 ea 10/08/24 12/18/24 lancets #200 ea 10/08/24 12/18/24 ferrous sulfate 325 mg (65 mg 325 mg PO Q OTHER DAY #9 0 tabs 11/10/24 12/21/24 iron) tablet breast pump #1 ea 11/16/24 12/18/24 PHYSICAL EXAM AT DISCHARGE Vital Signs: Vital Signs x48h Temp Pulse Resp BP Pulse Ox 12/22/24 03:14 36.7 C 81 19 119/67 99 LABS 12/21/24 13:11 12/21/24 12:50 Discharge Plan Discharge Patient Disposition: 01 Home, Self Care Medically Cleared Date:: 12/22/24 Prescriptions: Continued (DME) blood-glucose meter Kit See Rx Instructions .ROUTE .MEDSUPPLY Qty: 1 0RF Rx Instructions: 4 times per day as directed (DME) lancets Misc See Rx Instructions .ROUTE .MEDSUPPLY Qty: 200 4RF Rx Instructions: 4 times per day as directed (DME) blood sugar diagnostic Strip See Rx Instructions .ROUTE .MEDSUPPLY Qty: 100 4RF Rx Instructions: 4 times per day via meter as directed ferrous sulfate 325 mg (65 mg iron) tablet 325 mg PO Q OTHER DAY Qty: 90 4RF (DME) breast pump Device See Rx Instructions .Route Qty: 1 0RF Rx Instructions: As directed per instructions included with device for feeding . Classic 28 mg iron- 800 mcg tablet 1 tab PO DAILY Activity Restrictions: No Restrictions Diet: Regular Print Language: Slovak Patient Instructions: After a Vaginal , Holds, Breastfeed Common Questions, : Caring for Yourself Follow-up Care: Layla Berrios ARNP [Provider Admit Priv/Credential, Obstetrics/Gynecology]
[2024-12-22 08:34] LABS: HCT - HEMATOCRIT 31.8 % (37.0-47.0); HGB - HEMOGLOBIN 10.3 g/dL (12.0-16.0); MEAN PLATELET VOLUME 9.6 fL (7.9-10.8); NRBC ABSOLUTE COUNT (AUTO) 0.00 x10^3/uL; NUCLEATED RED BLOOD CELLS AUTO 0.0 /100WBC; PLT - PLATELET COUNT 237 10^3/uL (130-450); RED CELL DISTRIBUTION WIDTH 15.9 % (12.0-15.0)
[2024-12-22 08:45] LABS: ALT ALANINE AMINOTRANSFERASE 33.0 IU/L (10-60); AST ASPARTATE AMINOTRANSFERASE 41.0 IU/L (10-42); BUN - BLOOD UREA NITROGEN 9.0 mg/dL (6-20); CARBON DIOXIDE - CO2 24.0 mmol/L (21-32); CREATININE 0.4 mg/dL (0.6-1.3); GFR - MDRD 194.0 (>89)
[2024-12-22 13:28] VITALS: BP 118/65; TEMP 97.9
--- NOTE | 2024-12-22 13:36 | Labor Flowsheet ---
Labor Flowsheet Datetime Report Generated by CPN: 12/22/2024 13:36 Datetime: 12/22/2024 07:58 VITAL SIGNS NBP Sys/Christiana/Mean (mmHg): 123 : 73 : 84 Pulse: 90 Datetime: 12/21/2024 01:00 Stage of : Recovery Datetime: 12/20/2024 22:59 Medication Comments: pitocin bolus started Datetime: 12/20/2024 22:49 UTERINE ACTIVITY Monitor Mode: External Frequency (min): 1-2 Quality: Strong Duration (sec): 60 Pattern: Normal: <= 5 Contractions in 10 Minutes Resting Tone (Palpate): Relaxed ASSESSMENT A Monitor Mode: Telemetry Variability: Moderate 6-25 bpm Accelerations: 15X15 Decelerations: Variable; Prolonged Datetime: 12/20/2024 22:30 FHR Baseline Rate : 175 FHR Baseline Changes: Tachycardia Datetime: 12/20/2024 22:18 STAGE 2 Stage 2 Comments: RT outside room on standby Datetime: 12/20/2024 22:06 LaborFlag: Labor Datetime: 12/20/2024 21:35 COMMUNICATION Communication: Provider at Bedside Datetime: 12/20/2024 21:34 Communication Comments: hands and knees pushing Datetime: 12/20/2024 21:31 Temperature (C): 37.7 Datetime: 12/20/2024 20:49 I/O Interventions: Straight Cath (ml) @ 125 Datetime: 12/20/2024 20:30 Category: Category II Datetime: 12/20/2024 19:12 Patient Care Comments: break from pushing Datetime: 12/20/2024 19:05 MEDICATIONS Pitocin (milliunits): Increased to @ 6 Datetime: 12/20/2024 18:41 Comments: md aware of FHR and mothers HR Datetime: 12/20/2024 18:28 Contraction Comments: resumed pushing Datetime: 12/20/2024 18:23 Patient Position/Activity: Left Tilt Datetime: 12/20/2024 18:15 Oxygen Method: Room Air Datetime: 12/20/2024 17:40 SpO2 (%): 93 Datetime: 12/20/2024 17:31 VAGINAL EXAM Dilatation (cm): 10.0 Effacement (%): 100 Station: -1 Exam by: Herber Berrios Datetime: 12/20/2024 17:19 Epidural Procedure: Test Dose Datetime: 12/20/2024 17:15 ANESTHESIA Anesthesia Plans: Local Datetime: 12/20/2024 17:13 Anesthesia Comments: readjusting pt. position Datetime: 12/20/2024 17:02 Epidural Positioning: Sitting Datetime: 12/20/2024 15:26 PAIN Pain Scale: 9 Pain Goal: 4 Pain Assessment Comments: anesthesia aware currently pulling meds Datetime: 12/20/2024 14:02 Monitor Interventions for UA: Krebs Adjusted Datetime: 12/20/2024 13:37 Pitocin Checklist: At Least 1 Acceleration of 15 bpm x 15 Seconds in 30 Minutes or Adequate Variability; No More than 1 Late Deceleration Occurred in Past 30 Minutes; No More than 2 Variable Decelerations > 60 Seconds in Duration and decreasing >60 bpm in 30 minutes; No More than 5 Uterine Contractions in 10 Minutes for any 20 Minute Interval; Uterus Palpates Soft between Contractions Datetime: 12/20/2024 11:02 Monitor Interventions for FHR: Ultrasound Adjusted Datetime: 12/20/2024 10:33 Hygiene: Avani Care; Underpad Changed; Peripad Changed Datetime: 12/20/2024 10:13 Membrane Comments: more clear amniotic fluid Datetime: 12/20/2024 10:09 Membrane Status: Ruptured Membranes Rupture Method: Artificial Amniotic Fluid Color: Clear Amniotic Fluid Amount: Scant Amniotic Fluid Odor: None Datetime: 12/20/2024 10:04 Vaginal Exam Comments: no change, pt. ok with SROM at this time. Datetime: 12/20/2024 07:54 Respirations: 17 Datetime: 12/20/2024 05:19 Pain Presence: Intermittent Pain Type: Cramping; Contraction Pain Location: Abdomen Pain Coping: Talking Through Contractions Comfort Measures: Breathing/Relaxation Datetime: 12/20/2024 04:23 Membranes Ruptured Date/Time: 12/20/2024 10:09 Datetime: 12/20/2024 00:12 Vaginal Bleeding: None Cervix, Consistency: Soft Cervix, Position: Midposition Datetime: 12/19/2024 23:00 Pain Relief Measures: Comfort Measures MATERNAL ASSESSMENT Level of Consciousness: Alert Headache: Denies Nausea/Vomiting: Denies RUQ Epigastric Pain: Denies PATIENT CARE IV/Blood Work: IV Started; IV Saline Locked
== END 2024-12-22 12:45 | disposition home or self-care (01) | DRG 805 ==
LOC: WFO 20:32 → FBP 20:37
PROVIDERS: ADMIT Nurse Practitioner Obstetrics & Gynecology; ATTEND Nurse Practitioner Obstetrics & Gynecology